=== PATIENT | female | born 1970 | race Caucasian/White ===

== ENCOUNTER 2016-06-19 13:56 | Emergency (ER) | payer OTHER ==
[2016-06-19 14:28] VITALS: BP 154/95
[2016-06-19] MEDS ORDERED: methylPREDNISolone 125 MG* 2 ML VIAL IM ONE (14:49)
--- NOTE | 2016-06-19 15:23 | UC ---
arleen Tyler Timothy, scribed for Blanca Ross MD on 06/19/16 at 1428 . General HPI - HPI Summary HPI Summary: Dahiana Wilson is a 45 yo female presenting to [facility] with swelling in her face since at 0700 this morning, and 5/10 right ear pain and sore throat. She denies fever. 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 She was steroid dependent due to asthma. She has mild CP, but states this is not different from baseline. She denies any gum pain, as well as any other Sx. Her MHx includes numbness, asthma, arthritis, MRSA, shingles, heart tumor, and she is a smoker for the past 27 years. Multiple med allergies noted, but pt states she can take Bactrim and Biaxin and Cipro. Pt is worried about a stroke with the facial swelling. No speech problems or focal weakness. Pt is obese but states she used to weigh 700lbs. - History of Current Complaint Stated Complaint: FACE SWELLING Time Seen by Provider: 06/19/16 14:23 Hx Obtained From: Patient Onset/Duration: Sudden Onset, Lasting Hours, Still Present Timing: Constant Onset Severity: Moderate Current Severity: Moderate Pain Intensity: 5 Pain Location at: right ear Associated Signs & Symptoms: Positive: Chest Pain - baseline. Negative: Fever, Weakness - Allergy/Home Medications Allergies/Adverse Reactions: Allergies Allergy/AdvReac Type Severity Reaction Status Date / Time Penicillins Allergy Severe Anaphylatic Verified 02/05/16 16:55 Shock Amoxicillin Allergy Intermediate Hives/Diff. Verified 02/05/16 16:55 Breathing/I tching Tetracyclines & Related Allergy Intermediate Hives/Diff. Verified 02/05/16 16:55 Breathing/I tching Erythromycin Allergy Unknown Unknown Verified 02/05/16 16:55 Reaction Details Levofloxacin [From Levaquin] Allergy Itching Verified 02/05/16 16:55 PMH/Surg Hx/FS Hx/Imm Hx - Additional Past Medical History Additional PMH: Heart tumor Cardiovascular History Of: Reports: Cardiac Disorders - heart tumor Respiratory History Of: Reports: Asthma - Surgical History Surgical History: Yes Surgery Procedure, Year, and Place: 2005 & 2006 C-Sections. Gastric Bypass. traumatic . tubal ligation ("but I didn't have fallopian tubes and then I got twice" - Family History Known Family History: Positive: Cardiac Disease, Hypertension, Diabetes, Other - breast cancer, arthritis - Social History Occupation: Unemployed Alcohol Use: None Substance Use Type: None Substance Use Comment - Amount & Last Used: opana x10 years Smoking Status (MU): Heavy Every Day Tobacco Smoker Type: Cigarettes Amount Used/How Often: 3/4 ppd Length of Time of Smoking/Using Tobacco: 13+ years Have You Smoked in the Last Year: Yes - Immunization History Most Recent Influenza Vaccination: 2014/2015 Review of Systems Constitutional: Negative Skin: Other - facial swelling Eyes: Negative ENT: Sore Throat, Ear Ache - right Respiratory: Negative Cardiovascular: Chest Pain - not different from baseline Gastrointestinal: Negative Genitourinary: Negative Motor: Negative Neurovascular: Negative Musculoskeletal: Negative Neurological: Negative, Other - No facial asymmetry. No sign of Brown's palsy or paralysis Psychological: Negative All Other Systems Reviewed And Are Negative: Yes Physical Exam Triage Information Reviewed: Yes Completion Of Physical Exam Limited Due To: Other - odor similar to stale cigarette smoke Appearance: No Pain Distress, Pain Distress - mild, Obese Vital Signs: Initial Vital Signs Pulse 81 06/19/16 14:17 Resp 18 06/19/16 14:17 BP 154/95 06/19/16 14:17 Pulse Ox 97 06/19/16 14:17 Vital Signs Reviewed: Yes Eyes: Positive: Conjunctiva Clear. Negative: Discharge ENT: Positive: Hearing grossly normal, Pharyngeal erythema, Other: - Upper and lower dentures. White plaqueing on hard palate and tongue which does not scrape off, consistent with oral candidiasis.. Negative: Tonsillar swelling, Tonsillar exudate, Muffled/hoarse voice Dental: Positive: Other: - upper and lower dentures Neck: Positive: Supple, Nontender, Enlarged Nodes @ - ant cervical Respiratory: Positive: Lungs clear, Normal breath sounds, No respiratory distress Cardiovascular: Positive: RRR, No Murmur, Pulses Normal, Brisk Capillary Refill Musculoskeletal: Positive: Strength Intact, ROM Intact Neurological: Positive: Alert, Muscle Tone Normal Psychological Exam: Normal Skin: Positive: Other - right facial swelling and erythema Re-Evaluation - Re-Evaluation First Eval Re-Evaluation Time: 14:48 Change: Unchanged Comment: Pt is requesting a shot of solu-medrol to help with her facial swelling. The shot will be administered. Course/Dx - Course Course Of Treatment: Dahiana Wilson is a 45 yo female presenting to [facility] with sore throat, 5/10 right ear pain, and right sided facial swelling and redness. After clinical examination and negative rapid strep test, she will be diagnosed with facial swelling, oral thrush, and cellulitis and discharged with appropriate instructions. Pt was counseled to quit smoking tobacco, but does not want to receive cessation information. - Differential Dx - Multi-Symptom Differential Diagnoses: Other - cellulitis, Brown's palsy, oral infection, strep Provider Diagnoses: Facial swelling, oral thrush, cellulitis Discharge - Discharge Plan Condition: Stable Disposition: HOME Prescriptions: Nystatin SUSPENSION* 500,000 units .SEE ORDER QID #140 ml Sulfamethox/Trimethoprim DS* [Bactrim DS 800/160 TAB*] 1 tab PO BID #14 tab predniSONE TAB* [Deltasone TAB*] 40 mg PO DAILY #10 tab Patient Education Materials: Cellulitis (ED), Oral Candidiasis (ED) Referrals: No Primary Care Phys,NOPCP [Primary Care Provider] - Additional Instructions: Please follow up with Dr. Ross, your primary care physician in [place], within 2 days regarding your visit to urgent care today. Return to urgent care or the emergency department with any new or recurring symptoms. The documentation as recorded by the arleen hardwick Timothy accurately reflects the service I personally performed and the decisions made by me, Blanca Ross MD.
== END 2016-06-19 15:36 | disposition home or self-care (01) ==
LOC: UCEAST 13:56
DX: R22.0 Localized swelling, mass and lump, head (principal); B37.0 Candidal stomatitis; L03.90 Cellulitis, unspecified; Z88.1 Allergy status to other antibiotic agents; Z88.0 Allergy status to penicillin; Z88.8 Allergy status to other drugs, medicaments and biological substances; F17.210 Nicotine dependence, cigarettes, uncomplicated
CPT/HCPCS: 87651; 96372; 99212; G0463; J2930

== ENCOUNTER 2017-01-31 16:16 | Emergency (ER) | payer OTHER ==
--- NOTE | 2017-01-31 17:41 | UC ---
Respiratory Complaint HPI - HPI Summary HPI Summary: was recently in the hospital with pneumonia---she feels she was not discharged on a long enough course of prednisone or antibiotics..She has had not fever but lots of cough and wheezing - History of Current Complaint Chief Complaint: UCGeneralIllness Stated Complaint: URI Time Seen by Provider: 01/31/17 17:30 Hx Obtained From: Patient Hx Last Menstrual Period: 2 days ago ?: No Onset/Duration: Gradual Onset, Lasting Days Timing: Constant Severity Initially: Moderate Severity Currently: Moderate Pain Intensity: 6 Pain Scale Used: 0-10 Numeric Character: Cough: Productive Aggravating Factors: Deep Breaths, Recumbent Position Associated Signs And Symptoms: Positive: Pleuritic Chest Pain, Wheezing, URI - Allergies/Home Medications Allergies/Adverse Reactions: Allergies Allergy/AdvReac Type Severity Reaction Status Date / Time Penicillins Allergy Severe Anaphylatic Verified 01/31/17 16:32 Shock Amoxicillin Allergy Intermediate Hives/Diff. Verified 01/31/17 16:32 Breathing/I tching Tetracyclines & Related Allergy Intermediate Hives/Diff. Verified 01/31/17 16:32 Breathing/I tching Erythromycin Allergy Unknown Unknown Verified 01/31/17 16:32 Reaction Details Levofloxacin [From Levaquin] Allergy Itching Verified 01/31/17 16:32 Home Medications: Home Medications Albuterol 2.5MG/3ML (0.083%)* [Ventolin 2.5 MG/3 ML NEB.DANIELLE*] 2.5 mg INH Q4H PRN 01/31/17 [History Confirmed 01/31/17] Albuterol HFA INHALER* [Ventolin HFA Inhaler*] 2 puff INH Q6H PRN 01/31/17 [ History Confirmed 01/31/17] Torsemide TAB* [Demadex 20 MG*] 40 mg PO DAILY 01/31/17 [History Confirmed 01/31] PMH/Surg Hx/FS Hx/Imm Hx Previously Healthy: No Cardiovascular History: Hypertension Respiratory History: Asthma Other History Of: Negative For: HIV, Hepatitis B, Hepatitis C - Surgical History Surgical History: Yes Surgery Procedure, Year, and Place: 2005 & 2007 C-Sections. Gastric Bypass. traumatic . tubal ligation ("but I didn't have fallopian tubes and then I got twice" - Family History Known Family History: Positive: None, Cardiac Disease, Hypertension, Diabetes, Other - breast cancer, arthritis - Social History Occupation: Unemployed Lives: With Family Alcohol Use: None Substance Use Type: Prescribed Substance Use Comment - Amount & Last Used: opana x10 years Smoking Status (MU): Heavy Every Day Tobacco Smoker Type: Cigarettes Amount Used/How Often: 3/4 ppd Length of Time of Smoking/Using Tobacco: 13+ years Have You Smoked in the Last Year: Yes Cessation Counseling: Patient Advised to Stop - Immunization History Most Recent Influenza Vaccination: 2014/2015 Review of Systems Constitutional: Fatigue Skin: Negative Eyes: Negative ENT: Negative Respiratory: Cough Cardiovascular: Negative Gastrointestinal: Negative Genitourinary: Negative Motor: Negative Neurovascular: Negative Musculoskeletal: Negative Neurological: Negative Psychological: Negative Is Patient Immunocompromised?: No All Other Systems Reviewed And Are Negative: Yes Physical Exam Triage Information Reviewed: Yes Appearance: Well-Appearing, No Pain Distress, Obese Vital Signs: Initial Vital Signs Temp 97.3 F 01/31/17 16:26 Pulse 83 01/31/17 16:26 Resp 20 01/31/17 16:26 BP 152/94 01/31/17 16:26 Pulse Ox 99 01/31/17 16:26 Vital Signs Reviewed: Yes Eye Exam: Normal Eyes: Positive: Conjunctiva Clear ENT Exam: Normal ENT: Positive: Normal ENT inspection, Hearing grossly normal, Pharynx normal, TMs normal. Negative: Nasal congestion, Nasal drainage, Tonsillar swelling, Tonsillar exudate, Trismus, Muffled/hoarse voice Neck exam: Normal Neck: Negative: Supple, Nontender, No Lymphadenopathy Respiratory Exam: Other Respiratory: Positive: No respiratory distress, Decreased breath sounds. Negative: No accessory muscle use Cardiovascular Exam: Normal Cardiovascular: Positive: RRR, No Murmur, Pulses Normal, Brisk Capillary Refill Musculoskeletal Exam: Normal Musculoskeletal: Positive: Strength Intact, ROM Intact, No Edema Neurological Exam: Normal Neurological: Positive: Alert, Muscle Tone Normal Psychological Exam: Normal Psychological: Positive: Normal Response To Family Skin Exam: Normal UC Diagnostic Evaluation - Laboratory O2 Sat by Pulse Oximetry: 99 - Radiology Xray Interpretation: Positive (See Comments) Radiology Interpretation Completed By: Radiologist - right Respiratory Course/Dx - Course Course Of Treatment: Albuterol, cefdinir, increase fluids, follow with pcp this week - Differential Dx/Diagnosis Differential Diagnosis/HQI/PQRI: Asthma, Bronchitis, Exacerbation Of COPD, Laryngitis, Lower Resp Infection, Sinusitis Provider Diagnoses: Right BAsaliar inflitrate, Hypertension in poor control, nicotine dependent Discharge - Discharge Plan Condition: Stable Disposition: HOME Prescriptions: Albuterol HFA INHALER* [Ventolin HFA Inhaler*] 2 puff INH Q4H PRN #1 mdi PRN Reason: wheezing Cefdinir [Cefdinir 300 MG CAP] 300 mg PO BID #20 cap Clarithromycin TAB* [Biaxin 500 MG TAB*] 500 mg PO BID #20 tab predniSONE TAB* [Deltasone TAB*] 50 mg PO DAILY #5 tab Patient Education Materials: Bacterial Pneumonia (ED) Referrals: [facility] [Outside] - 3 Days
--- NOTE | 2017-01-31 18:11 | RAD ---
INDICATION: Cough and shortness of breath. COMPARISON: Comparison is made with a prior chest x-ray study from July 16, 2013. TECHNIQUE: Dual-energy PA and lateral views of the chest were obtained. FINDINGS: The heart is within normal limits in size. Mediastinal and hilar contours appear within normal limits. The lungs are underinflated. There is a small infiltrate at the right lung base. No pleural effusion is seen. IMPRESSION: HYPOVENTILATION, SMALL RIGHT BASILAR INFILTRATE.
[2017-01-31 18:18] VITALS: BP 123/81
== END 2017-01-31 18:46 | disposition home or self-care (01) ==
LOC: UCEAST 16:16
DX: R91.8 Other nonspecific abnormal finding of lung field (principal); R53.83 Other fatigue; I10 Essential (primary) hypertension; J45.909 Unspecified asthma, uncomplicated; E66.9 Obesity, unspecified; Z98.84 Bariatric surgery status; Z88.1 Allergy status to other antibiotic agents; Z88.0 Allergy status to penicillin; Z88.8 Allergy status to other drugs, medicaments and biological substances; F17.210 Nicotine dependence, cigarettes, uncomplicated
CPT/HCPCS: 71020; 99212; G0463

== ENCOUNTER 2017-05-22 16:28 | Emergency (ER) | payer OTHER ==
[2017-05-22 17:32] VITALS: BP 145/74
--- NOTE | 2017-05-22 18:27 | UC ---
Respiratory Complaint HPI - HPI Summary HPI Summary: 2 weeks of cough chest and sinus congestion-some fevers and fatigue - History of Current Complaint Chief Complaint: UCRespiratory Stated Complaint: SORE THROAT, CONGESTED Time Seen by Provider: 05/22/17 18:20 Hx Obtained From: Patient Hx Last Menstrual Period: 3 wks ago ?: No Onset/Duration: Gradual Onset, Lasting Weeks - 2, Still Present Timing: Constant Severity Initially: Moderate Severity Currently: Moderate Character: Cough: Nonproductive Aggravating Factors: Nothing Alleviating Factors: Bronchodilator Associated Signs And Symptoms: Positive: Fever, Chills, URI, Nasal Congestion, Sinus Discomfort - Allergies/Home Medications Allergies/Adverse Reactions: Allergies Allergy/AdvReac Type Severity Reaction Status Date / Time Penicillins Allergy Severe Anaphylatic Verified 01/31/17 16:32 Shock Tetracyclines & Related Allergy Intermediate Hives/Diff. Verified 05/22/17 17:32 Breathing/I tching Erythromycin Allergy Unknown Unknown Verified 05/22/17 17:32 Reaction Details Levofloxacin [From Levaquin] Allergy Itching Verified 05/22/17 17:32 PMH/Surg Hx/FS Hx/Imm Hx Previously Healthy: No - Chronic pain Respiratory History: Bronchitis, Pneumonia, Other Other Respiratory History: nicotine dependent Other History Of: Negative For: HIV, Hepatitis B, Hepatitis C - Surgical History Surgical History: Yes Surgery Procedure, Year, and Place: 2006 & 2007 C-Sections. Gastric Bypass. traumatic . tubal ligation ("but I didn't have fallopian tubes and then I got twice" - Family History Known Family History: Positive: None, Cardiac Disease, Hypertension, Diabetes, Other - breast cancer, arthritis - Social History Occupation: Works From/At Home Lives: With Family Alcohol Use: None Substance Use Type: Prescribed Substance Use Comment - Amount & Last Used: Opana x10 years Smoking Status (MU): Heavy Every Day Tobacco Smoker Type: Cigarettes Amount Used/How Often: 3/4 ppd Length of Time of Smoking/Using Tobacco: 13+ years Have You Smoked in the Last Year: Yes Cessation Counseling: Counseled 3+Min - 10 Min - Immunization History Most Recent Influenza Vaccination: 2014/2015 Review of Systems Constitutional: Fatigue Skin: Negative Eyes: Negative ENT: Sore Throat Respiratory: Cough Cardiovascular: Negative Gastrointestinal: Negative Genitourinary: Negative Motor: Negative Neurovascular: Negative Musculoskeletal: Negative Neurological: Negative Psychological: Negative Is Patient Immunocompromised?: No All Other Systems Reviewed And Are Negative: Yes Physical Exam Triage Information Reviewed: Yes Appearance: Well-Appearing, Pain Distress - mild, Obese - morbid Vital Signs: Initial Vital Signs Temp 97.2 F 05/22/17 17:28 Pulse 95 05/22/17 17:28 Resp 18 05/22/17 17:28 BP 145/74 05/22/17 17:28 Pulse Ox 98 05/22/17 17:28 Vital Signs Reviewed: Yes Eye Exam: Normal Eyes: Positive: Conjunctiva Clear ENT Exam: Normal ENT: Positive: Normal ENT inspection, Hearing grossly normal, Pharynx normal, TMs normal, Sinus tenderness, Uvula midline. Negative: Nasal congestion, Nasal drainage, Tonsillar swelling, Tonsillar exudate, Trismus, Muffled voice, Hoarse voice, Dental tenderness Dental Exam: Normal Neck exam: Normal Neck: Positive: Supple, Nontender, No Lymphadenopathy Respiratory Exam: Normal Respiratory: Positive: Chest non-tender, Lungs clear, Normal breath sounds, No respiratory distress, No accessory muscle use Cardiovascular Exam: Normal Cardiovascular: Positive: RRR, No Murmur, Pulses Normal, Brisk Capillary Refill Musculoskeletal Exam: Normal Musculoskeletal: Positive: Strength Intact, ROM Intact, No Edema Neurological Exam: Normal Neurological: Positive: Alert, Muscle Tone Normal Psychological Exam: Normal Skin Exam: Normal UC Diagnostic Evaluation - Laboratory O2 Sat by Pulse Oximetry: 98 Respiratory Course/Dx - Course Course Of Treatment: continue neb. Albuterol, increase fluids, tylenol, ibuprofen for pain, nicotine cesasation information, prednisone, biaxin, again I have provided her with referral info to get a primary care doctor so she can be followwed appropriatly - Differential Dx/Diagnosis Provider Diagnoses: Nicotine dependent, morbid obesity,elevated blood pressure withour diagnosis of hypertension, acute exacerbation of chronic bronchitis Discharge - Discharge Plan Condition: Stable Disposition: HOME Prescriptions: Clarithromycin TAB* [Biaxin 500 MG TAB*] 500 mg PO BID #20 tab predniSONE TAB* [Deltasone TAB*] 20 mg PO DAILY #18 tab Patient Education Materials: How to Stop Smoking (ED), Acute Bronchitis (ED), Secondhand Smoke Exposure in Children (ED), Bronchospasm (ED) Referrals: [facility] [place]] - As Soon As Possible
== END 2017-05-22 19:03 | disposition home or self-care (01) ==
LOC: UCEAST 16:28
DX: J42 Unspecified chronic bronchitis (principal); E66.9 Obesity, unspecified; R03.0 Elevated blood-pressure reading, without diagnosis of hypertension; F17.210 Nicotine dependence, cigarettes, uncomplicated; R09.81 Nasal congestion; Z88.0 Allergy status to penicillin; Z88.1 Allergy status to other antibiotic agents
CPT/HCPCS: 87651; 99212; G0463

== ENCOUNTER 2017-05-28 18:46 | Emergency (ER) | payer OTHER ==
[2017-05-28 18:52] VITALS: BP 161/96
== END 2017-05-28 19:17 | disposition left against medical advice (07) ==
LOC: ED 18:46
DX: R06.02 Shortness of breath (principal); Z53.21 Procedure and treatment not carried out due to patient leaving prior to being seen by health care provider

== ENCOUNTER 2017-08-26 09:44 | Emergency (ER) | payer OTHER ==
[2017-08-26 10:13] VITALS: BP 159/106
--- NOTE | 2017-08-26 10:16 | UC ---
Shortness of Breath HPI - HPI Summary HPI Summary: Pt presents with cough, worsening dysphagia, and feeling SOB at times. She tells me that she has a history of COPD, gastric RNY, and a "tumor on the backside of her heart". She does not have a PCP. Over the last week she has been having a productive cough with black and brown/yellow mucus. [place] SOB at times, especially while coughing. She also reports that ever since her gastric RNY many years ago, she has had difficulties swallowing - feels this is worsening over the last 2-3 months. She also tells me that about 3 years ago she saw her PCP at that time and was told she had a tumor on the backside of her heart. She did not follow up for this until 4 months ago in [place]. She had, what sounds to me like, an transesophageal echo and/or EGD and is unsure of the results. [place] wanted her to follow up in 3 months, but she did not go to this follow up - citing other family members' health issues. She denies fever, chills, sore throat, chest pain, abdominal pain, n/v/d/c. She is currently not taking any medications. She is still smoking daily. - History of Current Complaint Chief Complaint: UCGeneralIllness Stated Complaint: CONGESTED Hx Obtained From: Patient Hx Last Menstrual Period: 08/26/17 Onset/Duration: Gradual Onset Timing: Constant Current Severity: None - Allergy/Home Medications Allergies/Adverse Reactions: Allergies Allergy/AdvReac Type Severity Reaction Status Date / Time MS Penicillins [Penicillins] Allergy Severe Anaphylatic Verified 08/26/17 10:02 Shock MS Tetracyclines & Related Allergy Intermediate Hives/Diff. 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 Gastric Bypass. traumatic . tubal ligation ("but I didn't have fallopian tubes and then I got twice" - Family History Known Family History: Positive: None, Cardiac Disease, Hypertension, Diabetes, Other - breast cancer, arthritis - Social History Lives: With Family Alcohol Use: Occasionally Substance Use Type: None Substance Use Comment - Amount & Last Used: Opana x10 years Smoking Status (MU): Light Every Day Tobacco Smoker Type: Cigarettes Amount Used/How Often: 1/2 ppd Length of Time of Smoking/Using Tobacco: 13+ years Have You Smoked in the Last Year: Yes - Immunization History Most Recent Influenza Vaccination: 2014/2015 Review of Systems Constitutional: Negative Skin: Negative Eyes: Negative ENT: Other - Dysphagia Respiratory: Shortness Of Breath, Cough Cardiovascular: Negative Gastrointestinal: Negative Genitourinary: Negative Neurovascular: Negative Musculoskeletal: Negative Neurological: Negative Psychological: Negative All Other Systems Reviewed And Are Negative: Yes Physical Exam - Summary Physical Exam Summary: GENERAL: NAD. Obese. Exam limited due to body habitus. Drinking iced tea currently with no evidence of dysphagia. SKIN: No rashes, sores, ulcers, masses, lesions. HEENT: Head: AT/NC Eyes: Conjunctiva clear without inflammation or discharge. Ears: Hearing grossly normal. TMs intact, no bulging, erythema, or edema. Nose: Nasal mucosa pink and moist. NTTP maxillary and frontal sinus. Throat: Posterior oropharynx without exudates, erythema, or tonsillar enlargement. Uvula midline. NECK: Supple. Nontender. No lymphadenopathy. Trachea midline. CHEST: Moderate wheezing throughout. No accessory muscle use. Breathing comfortably and in no distress. CV: RRR. Without m/r/g. Pulses intact. Brisk cap refill. NEURO: Alert. CN II-XII grossly intact. PSYCH: Age appropriate behavior. Triage Information Reviewed: Yes Vital Signs: Initial Vital Signs Temp 97.5 F 08/26/17 10:05 Pulse 88 08/26/17 10:05 Resp 22 08/26/17 10:05 BP 159/106 08/26/17 10:05 Pulse Ox 98 08/26/17 10:05 Shortness of Breath Dx - Course Course Of Treatment: CXR: IMPRESSION: Stigmata of obstructive lung disease. No acute pulmonary or cardiac process evident. EKG NSR 77bpm J point elevation early repol as read by Dr. Juan. I had a long discussion with the patient that her symptoms are concerning and should be further evaluated in the ED for more appropriate testing, such as possible CT/CTA, EGD, Echo. She refused and said she just wanted to be treated for her cough. I will treat her as a COPD exacerbation. She signed out AMA and left in stable condition. - Differential Dx/Diagnosis Provider Diagnoses: Cough. SOB Discharge - Sign-Out/Discharge Documenting (check all that apply): Discharge/Admit/Transfer - Discharge Plan Condition: Stable Disposition: AGAINST MEDICAL ADVICE Prescriptions: Albuterol HFA INHALER* [Ventolin HFA Inhaler*] 1 - 2 puff INH Q6H PRN #1 mdi PRN Reason: Sob/Wheezing Azithromycin TAB* [Zithromax TAB (Z-MONICA) 250 mg #6 tabs] 2 tab PO .TODAY, THEN 1 DAILY #1 monica Ciprofloxacin TAB* [Cipro 500 MG TAB*] 500 mg PO BID #14 tab predniSONE TAB* [Deltasone TAB*] 60 mg PO DAILY #21 tab Referrals: No Primary Care Phys,NOPCP [Primary Care Provider] - - Billing Disposition and Condition Condition: STABLE Disposition: AMA
--- NOTE | 2017-08-26 11:09 | RAD ---
INDICATION: Congested. History of tobacco use. The patient notes that she has a cardiac tumor. COMPARISON: January 31, 2017 TECHNIQUE: Dual energy PA and routine lateral views of the chest were obtained. REPORT: Elevated lung volumes with increased AP thoracic diameter. Accounting for superimposed soft tissues with large body habitus the lungs and pleural spaces are grossly clear. Mild prominence of the interstitial markings. Negative for pneumothorax. The heart, pulmonary vasculature, and mediastinal contours are unremarkable. Mild thoracic degenerative spondylosis. IMPRESSION: Stigmata of obstructive lung disease. No acute pulmonary or cardiac process evident.
== END 2017-08-26 11:33 | disposition left against medical advice (07) ==
LOC: UCEAST 09:44
DX: R05 Cough (principal); R06.02 Shortness of breath; F17.210 Nicotine dependence, cigarettes, uncomplicated; Z88.3 Allergy status to other anti-infective agents; Z88.0 Allergy status to penicillin
CPT/HCPCS: 71046; 93005; 99212; G0463

== ENCOUNTER 2018-03-07 17:59 | Emergency (ER) | payer OTHER ==
[2018-03-07 18:10] VITALS: BP 155/88
--- NOTE | 2018-03-07 19:19 | UC ---
Respiratory Complaint HPI - HPI Summary HPI Summary: 47 yo WF h/o adrenal tumor and multiple boils, COPD, skin infections p/w recurrent boil on chin associated with recent and ongoing cough with productive sputum and illness x 2-3 weeks. Pt has been on intermittent periods of oral steroids due to her "adrenal tumor" and is in need for an MRI but not able to obtain one trell to her weight of 181kg. - History of Current Complaint Chief Complaint: UCGeneralIllness Stated Complaint: SORE THROAT Time Seen by Provider: 03/07/18 18:57 Hx Obtained From: Patient Hx Last Menstrual Period: 02/01/18 Onset/Duration: Lasting Days, Lasting Weeks Severity Initially: Moderate Severity Currently: Moderate Pain Intensity: 7 - Allergies/Home Medications Allergies/Adverse Reactions: Allergies Allergy/AdvReac Type Severity Reaction Status Date / Time erythromycin base Allergy Unknown Verified 03/07/18 18:13 Reaction Details levofloxacin [From Levaquin] Allergy Itching Verified 03/07/18 18:12 Penicillins Allergy Itching Verified 03/07/18 18:13 Tetracyclines Allergy Hives/Diff. Verified 03/07/18 18:13 Breathing/I tching Home Medications: Home Medications Ibuprofen 400 mg PO 03/07/18 [History] PMH/Surg Hx/FS Hx/Imm Hx Previously Healthy: No Other Endocrine History: adrenal tumor Respiratory History: COPD, Bronchitis Other History Of: Negative For: HIV, Hepatitis B, Hepatitis C - Surgical History Surgical History: Yes Surgery Procedure, Year, and Place: 2006 & 2007 C-Sections. Gastric Bypass. traumatic . tubal ligation ("but I didn't have fallopian tubes and then I got twice" - Family History Known Family History: Positive: None, Cardiac Disease, Hypertension, Diabetes, Other - breast cancer, arthritis - Social History Alcohol Use: Occasionally Substance Use Type: None Substance Use Comment - Amount & Last Used: Opana x10 years Smoking Status (MU): Heavy Every Day Tobacco Smoker Type: Cigarettes Amount Used/How Often: 1/2 ppd Length of Time of Smoking/Using Tobacco: 13+ years Have You Smoked in the Last Year: Yes - Immunization History Most Recent Influenza Vaccination: 2014/2015 Review of Systems Constitutional: Negative Skin: Other - boil on chin Eyes: Negative ENT: Negative Respiratory: Shortness Of Breath, Cough Cardiovascular: Negative Gastrointestinal: Negative Genitourinary: Negative Motor: Negative Neurovascular: Negative Musculoskeletal: Negative Neurological: Negative Psychological: Negative All Other Systems Reviewed And Are Negative: Yes Physical Exam - Summary Physical Exam Summary: Vital Signs Reviewed: Yes Appearance: Positive: Well-Appearing Skin: Positive: chin cellulitis size 3x4cm Head/Face: Positive: Normal Head/Face Inspection Eyes: Positive: EOMI, ELVIA ENT: Positive: Hearing grossly normal, Pharynx normal, TMs erythema L>R Neck: Positive: submandibular and B/L cervical LAD Respiratory/Lung Sounds: Positive: expiratory wheezing, faint Cardiovascular: Positive: RRR, S1,S2 Abdomen Description: Positive: Nontender, Soft Bowel Sounds: Positive: Present Musculoskeletal: Positive: Normal Neurological: Positive: CN Intact II-III Psychiatric:Positive: Normal Vital Signs: Initial Vital Signs Temp 37.3 C 03/07/18 18:02 Pulse 87 03/07/18 18:02 Resp 16 03/07/18 18:02 BP 155/88 03/07/18 18:02 Pulse Ox 98 03/07/18 18:02 UC Diagnostic Evaluation - Laboratory O2 Sat by Pulse Oximetry: 98 Respiratory Course/Dx - Course Course Of Treatment: Chin cellulitis- abx. COPD exacerbation with bronchitis- abx with steroids. Left ear pain- evolving OM- abx - Differential Dx/Diagnosis Provider Diagnoses: Chin cellulitis. Bronchitis. Left OM Discharge - Sign-Out/Discharge Documenting (check all that apply): Patient Departure All imaging exams completed and their final reports reviewed: Yes - Discharge Plan Condition: Stable Disposition: HOME Prescriptions: Cefuroxime 500 MG(NF) 500 mg PO BID 7 Days #14 tab predniSONE TAB* [Deltasone 20 MG TAB*] 20 mg PO DAILY 5 Days #5 tab Patient Education Materials: Cellulitis (ED), Acute Bronchitis (ED), Ear Infection (ED) Referrals: No Primary Care Phys,NOPCP [Primary Care Provider] - - Billing Disposition and Condition Condition: STABLE Disposition: Home
[2018-03-07] MEDS ORDERED: DOXYcycline CAP(*) 100 MG PO ONE (19:26)
== END 2018-03-07 20:05 | disposition home or self-care (01) ==
LOC: UCEAST 17:59
DX: L03.211 Cellulitis of face (principal); J40 Bronchitis, not specified as acute or chronic; H66.92 Otitis media, unspecified, left ear; J44.9 Chronic obstructive pulmonary disease, unspecified; F17.210 Nicotine dependence, cigarettes, uncomplicated; Z88.1 Allergy status to other antibiotic agents; Z88.0 Allergy status to penicillin
CPT/HCPCS: 87651; 99202; A9270-GY; G0463

== ENCOUNTER 2018-08-08 15:09 | Emergency (ER) | payer OTHER ==
[2018-08-08 16:12] VITALS: BP 134/69
[2018-08-08] MEDS ORDERED: Albuterol/Ipratropium NEB.SOL* Albuterol 2.5 MG/Ipratropium 0.5 MG 3 ML INH ONE (16:27)
--- NOTE | 2018-08-08 16:28 | UC ---
Respiratory Complaint HPI - HPI Summary HPI Summary: Ill with cold symptoms over the past 2 weeks. The patient was seen in a [place] facility and was diagnosed with bronchitis and given a course of clindamycin. She states she got better for one or 2 days however today she has more of a cough and wheezing. She is a smoker and has continued to smoke. She' s had hoarseness for about 2 weeks. - History of Current Complaint Chief Complaint: UCRespiratory Stated Complaint: CONGESTED Time Seen by Provider: 08/08/18 15:51 Hx Obtained From: Patient Hx Last Menstrual Period: 07/22/18 ?: No Onset/Duration: Gradual Onset Severity Initially: Moderate Severity Currently: Mild Pain Intensity: 6 Character: Cough: Productive - Productive cough of "chunky pieces". Aggravating Factors: Allergens Alleviating Factors: Bronchodilator Associated Signs And Symptoms: Positive: Wheezing, URI, Nasal Congestion Related History: Seasonal Allergies - Risk Factors Pulmonary Embolism Risk Factors: Smoking Cardiac Risk Factors: Smoking Pseudomonas Risk Factors: Repeated Antibiotics Past 3 Months Tuberculosis Risk Factors: Negative - Allergies/Home Medications Allergies/Adverse Reactions: Allergies Allergy/AdvReac Type Severity Reaction Status Date / Time erythromycin base Allergy Unknown Verified 08/08/18 16:13 Reaction Details levofloxacin [From Levaquin] Allergy Itching Verified 08/08/18 16:13 Penicillins Allergy Itching Verified 08/08/18 16:13 Tetracyclines Allergy Hives/Diff. Verified 08/08/18 16:13 Breathing/I tching PMH/Surg Hx/FS Hx/Imm Hx Previously Healthy: Yes - treated for bronchitis with clindamycin 2 weeks ago Respiratory History: Asthma Other History Of: Negative For: HIV, Hepatitis B, Hepatitis C - Surgical History Surgical History: Yes Surgery Procedure, Year, and Place: 2006 & 2007 C-Sections. Gastric Bypass. traumatic . tubal ligation ("but I didn't have fallopian tubes and then I got twice" - Family History Known Family History: Positive: None, Cardiac Disease, Hypertension, Diabetes, Other - breast cancer, arthritis - Social History Alcohol Use: Occasionally Substance Use Type: None Substance Use Comment - Amount & Last Used: Opana x10 years Smoking Status (MU): Light Every Day Tobacco Smoker Type: Cigarettes Amount Used/How Often: 1/2 ppd Length of Time of Smoking/Using Tobacco: 13+ years Have You Smoked in the Last Year: Yes - Immunization History Most Recent Influenza Vaccination: Review of Systems All Other Systems Reviewed And Are Negative: Yes ENT: Positive: Sore Throat, Nasal Discharge, Sinus Congestion Respiratory: Positive: Cough - Wheezing, productive cough "chunky pieces" Cardiovascular: Positive: Negative Is Patient Immunocompromised?: No Physical Exam Triage Information Reviewed: Yes Appearance: Well-Appearing, No Pain Distress, Well-Nourished Vital Signs: Initial Vital Signs Temp 98 F 08/08/18 16:07 Pulse 84 08/08/18 16:07 Resp 18 08/08/18 16:07 BP 134/69 08/08/18 16:07 Pulse Ox 98 08/08/18 16:07 Vital Signs Reviewed: Yes Eye Exam: Normal ENT: Positive: Hearing grossly normal, Pharynx normal, Nasal congestion, Nasal drainage, TMs normal, Hoarse voice, Uvula midline. Negative: Tonsillar swelling , Tonsillar exudate, Trismus, Muffled voice Neck exam: Normal Neck: Positive: Supple, Nontender, No Lymphadenopathy Respiratory: Positive: No respiratory distress, No accessory muscle use, Wheezing - Very mild wheezing however patient does not take a good inspiration or expiration. Cardiovascular Exam: Normal Musculoskeletal Exam: Normal Neurological Exam: Normal Psychological Exam: Normal Skin Exam: Normal Respiratory Course/Dx - Course Course Of Treatment: DuoNeb treatment was given. Chest x-ray: FINDINGS: The heart and mediastinum are normal in size and contour. The lungs are grossly clear. There is no evidence of large pleural effusion. Visualized bones are normal for the patient's age. There is no radiographic evidence of free air beneath the diaphragm IMPRESSION: No radiographic evidence of acute cardiopulmonary disease. Going to treat with prednisone 60 mg daily for 3 days, 40 mg daily for 3 days and 20 mg daily for 3 days. She does not have a primary care provider therefore I'm going to refer her to [facility] to help her establish that. She is agreeable to this. She may continue her albuterol treatments at home every 4 hours as needed for wheezing. I did advise her that she should stop smoking. - Differential Dx/Diagnosis Differential Diagnosis/HQI/PQRI: Bronchitis Provider Diagnosis: Bronchitis Discharge - Sign-Out/Discharge Documenting (check all that apply): Patient Departure All imaging exams completed and their final reports reviewed: Yes - Discharge Plan Condition: Fair Disposition: HOME Prescriptions: predniSONE [Prednisone 20 MG TAB] 20 mg PO DAILY 9 Days #18 tablet Patient Education Materials: Acute Bronchitis (ED) Referrals: No Primary Care Phys,NOPCP [Primary Care Provider] - [facility] [address] [Outside] Additional Instructions: Increase fluids. Take the prednisone with food. Continue your nebulizer at home every 4 hours as needed. Definite follow-up with your primary care provider if no improvement in 3 or 4 days. - Billing Disposition and Condition Condition: FAIR Disposition: Home
== END 2018-08-08 17:49 | disposition home or self-care (01) ==
LOC: UCEAST 15:09
DX: J45.909 Unspecified asthma, uncomplicated (principal); F17.210 Nicotine dependence, cigarettes, uncomplicated; Z88.1 Allergy status to other antibiotic agents; Z88.0 Allergy status to penicillin
CPT/HCPCS: 71046; 99212; A9270-GY; G0463

== ENCOUNTER 2019-02-19 12:02 | Emergency (ER) | payer OTHER ==
--- NOTE | 2019-02-19 12:08 | UC ---
Throat Pain/Nasal Rickey HPI - HPI Summary HPI Summary: 48 yo female presents with RIGHT ear pain and drainage. She tells me that yesterday her right ear began to hurt and this morning had increased pain and noticed some bloody drainage. She was recently swimming in [facility] and got back 2 days ago. She also notes that for the past 2-3 weeks she has had "boils" to her right leg - gets these from time to time and states that oral anbx and steroids always make them go away. She denies fever, chills, sinus symptoms, sore throat, cough, hx of MRSA - History of Current Complaint Stated Complaint: CHEST CONGESTION BLOODY DRAINAGE FROM EAR SKIN ISS Time Seen by Provider: 02/19/19 12:07 Hx Obtained From: Patient Hx Last Menstrual Period: 07/22/18 Onset/Duration: Gradual Onset Severity: Moderate Pain Intensity: 5 Pain Scale Used: 0-10 Numeric - Allergies/Home Medications Allergies/Adverse Reactions: Allergies Allergy/AdvReac Type Severity Reaction Status Date / Time erythromycin base Allergy Unknown Verified 08/08/18 16:13 Reaction Details levofloxacin [From Levaquin] Allergy Itching Verified 08/08/18 16:13 Penicillins Allergy Itching Verified 08/08/18 16:13 Tetracyclines Allergy Hives/Diff. Verified 08/08/18 16:13 Breathing/I tching PMH/Surg Hx/FS Hx/Imm Hx - Additional Past Medical History Additional PMH: Chronic pain Heart tumor Respiratory History: Asthma Other History Of: Negative For: HIV, Hepatitis B, Hepatitis C - Surgical History Surgical History: Yes Surgery Procedure, Year, and Place: 2005 & 2006 C-Sections. Gastric Bypass. traumatic . tubal ligation ("but I didn't have fallopian tubes and then I got twice" - Family History Known Family History: Positive: Cardiac Disease, Hypertension, Diabetes, Other - breast cancer, arthritis - Social History Lives: With Family Alcohol Use: Occasionally Substance Use Type: None Substance Use Comment - Amount & Last Used: Opana x10 years Smoking Status (MU): Light Every Day Tobacco Smoker Type: Cigarettes Amount Used/How Often: 1/2 ppd Length of Time of Smoking/Using Tobacco: 13+ years Have You Smoked in the Last Year: Yes - Immunization History Most Recent Influenza Vaccination: 2014/2015 Review of Systems All Other Systems Reviewed And Are Negative: No Constitutional: Positive: Negative Skin: Positive: Other - "boils" Eyes: Positive: Negative ENT: Positive: Ear Ache Respiratory: Positive: Negative Cardiovascular: Positive: Negative Gastrointestinal: Positive: Negative Neurological: Positive: Negative Psychological: Positive: Negative Physical Exam - Summary Physical Exam Summary: GENERAL: NAD. WDWN. No pain distress. SKIN: RIGHT THIGH: Scattered 5mm faint abscesses/folliculitis. Mild erythema and edema at bases with slight TTP. No drainage, discharge, or streaking. HEENT: Head: AT/NC Eyes: EOM intact. Conjunctiva clear without inflammation or discharge. Ears: Hearing grossly normal. TMs intact, no bulging, erythema, or edema. RIGHT EAR CANAL: Mild dried blood and edema. TM intact. TTP with auricular movement. Nose: Nasal mucosa pink and moist. NTTP maxillary and frontal sinus. Throat: Posterior oropharynx without exudates, erythema, or tonsillar enlargement. Uvula midline. NECK: Supple. Nontender. No lymphadenopathy. CHEST: CTAB. No accessory muscle use. Breathing comfortably and in no distress. CV: RRR. Pulses intact. Cap refill <2seconds NEURO: Alert. PSYCH: Age appropriate behavior. Triage Information Reviewed: Yes Vital Signs: Vital Signs: Temp Pulse Resp BP Pulse Ox 97.8 F 86 18 177/123 100 02/19/19 12:23 02/19/19 12:23 02/19/19 12:23 02/19/19 12:23 02/19/19 12:23 Vital Signs Reviewed: Yes Throat Pain/Nasal Course/Dx - Course Course Of Treatment: Right otitis externa. Folliculitis vs abscesses to right thigh. - Differential Dx/Diagnosis Provider Diagnosis: Otitis externa, Folliculitis Discharge ED - Sign-Out/Discharge Documenting (check all that apply): Patient Departure All imaging exams completed and their final reports reviewed: No Studies - Discharge Plan Condition: Stable Disposition: HOME Prescriptions: Cephalexin CAP* [Keflex CAP*] 500 mg PO TID #21 cap Ofloxacin 0.3% (Ear Drop)* [Floxin 0.3% OTIC.DANIELLE (Ear Drop)] 5 drop RIGHT EAR BID 7 Days #1 btl predniSONE TAB* [Deltasone 20 MG TAB*] 40 mg PO DAILY #10 tab Patient Education Materials: Ear Infection (ED), Furunculosis and Carbunculosis (ED) Referrals: No Primary Care Phys,NOPCP [Primary Care Provider] - [facility] [place]Outside] - As Soon As Possible Additional Instructions: If you develop a fever, shortness of breath, chest pain, new or worsening symptoms - please call your PCP or go to the ED immediately. Your blood pressure was high at todays visit. Please see your primary provider within 4 weeks for recheck and re-evaluation. - Billing Disposition and Condition Condition: STABLE Disposition: Home
--- OUTSIDE RECORDS SUMMARY | 2019-02-19 12:15 | XMS REPORT | Continuity of Care Document ---
:1970 External Reference #:[id number] Author Name Francisco Renee DO, MPH Address [facility]7 [facility], [address] [place] [address] Problems Active Problems Provider Date Type 2 diabetes mellitus Francisco Renee DO, MPH Onset: 03/29/2008 Social History Type Date Description Comments Sex Unknown Cigarette Use Current Cigarette Smoker 1 Pack Daily ETOH Use Denies alcohol use Tobacco Use Start: Unknown Patient is a current smoker, smokes every day Smoking Status Reviewed: 01/11/19 Patient is a current smoker, smokes every day Allergies, Adverse Reactions, Alerts Active Allergies Reaction Severity Comments Date PCN 03/29/2008 Erythromycin 03/29/2008 Amoxicillin 03/29/2008 Medications Active Medications SIG Qnty Indications Ordering Date Provider Cyclobenzaprine HCL si by mouth 60tabs Francisco Renee, 03/08/2016 10mg every 8 to 12 DO, MPH Tablets hours as directed chronic pain patient. Opana si by mouth 150tabs Francisco Renee, 11/09/2014 10mg Tablets every 4-6 hours DO, MPH as directed chronic pain patient can fill generic if needed. Oxymorphone HCL ER si by mouth 60tabs G89.21 Francisco Renee, 07/11/2014 40mg every 12 hours DO, MPH Tablets ER 12HR as directed chronic pain M25.552 M25.551 Singulair 10mg Tablets 1 PO qd 30tabs Unknown Albuterol 90mcg/Act prn Unknown Aerosol Advair HFA 45/21 Aerosol 1 puff bid Unknown Torsemide 20mg Tablets 1 bid 60tabs Unknown Nicotine Transdermal System Unknown 21mg/24HR Patches 24HR Immunizations Description No Information Available Vital Signs Date Vital Result Comment 01/11/2019 2:05pm BP Systolic 144 mmHg BP Diastolic 86 mmHg Heart Rate 94 /min Respiratory Rate 20 /min Height 67 inches 5'7" Weight 462.00 lb Pain Level 6 Pain at this time. Pain Level With Medicine 6 on average with meds Pain Level Without Medicine 9 without meds BMI (Body Mass Index) 72.4 kg/m2 12/08/2018 2:33pm BP Systolic 140 mmHg BP Diastolic 86 mmHg Heart Rate 88 /min Respiratory Rate 20 /min Height 67 inches 5'7" Weight 460.00 lb Pain Level 4 Pain at this time. Pain Level With Medicine 3 on average with meds Pain Level Without Medicine 9 without meds BMI (Body Mass Index) 72.0 kg/m2 Results Description No Information Available Procedures Date Code Description Status 12/08/2018 97025 Therapeutic, Prophylactic Or Diagnostic Injection Subq/Im Completed 11/09/2018 32133 Therapeutic, Prophylactic Or Diagnostic Injection Subq/Im Completed 10/09/2018 03080 Therapeutic, Prophylactic Or Diagnostic Injection Subq/Im Completed 09/04/2018 43991 Therapeutic, Prophylactic Or Diagnostic Injection Subq/Im Completed 08/06/2018 29976 Therapeutic, Prophylactic Or Diagnostic Injection Subq/Im Completed Medical Devices Description No Information Available Encounters Type Date Location Provider Dx Diagnosis Office Visit 12/08/2018 Main Office as Of Francisco Renee DO G89.21 Chronic pain due 2:15p 06/05/13 MPH to trauma M25.552 Pain in left hip M25.551 Pain in right hip M43.16 Spondylolisthesis, lumbar region M54.5 Low back pain 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 R53.83 Other fatigue Office Visit 11/09/2018 3:00p Main Office as Francisco Renee G89.21 Chronic pain due Of 06/05/13 DO, MPH to trauma M54.5 Low back pain M25.552 Pain in left hip M25.551 Pain in right hip 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 R53.83 Other fatigue Office Visit 10/09/2018 1:00p Main Office as Francisco Renee G89.21 Chronic pain due Of 06/05/13 DO, MPH to trauma M25.552 Pain in left hip M25.551 Pain in right hip M54.5 Low back pain R53.83 Other fatigue 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 Office Visit 09/04/2018 1:15p Main Office as ReneeFrancisco santillan, G89.21 Chronic pain due Of 06/05/13 DO, MPH to trauma M54.5 Low back pain M25.552 Pain in left hip M25.551 Pain in right hip 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 R53.83 Other fatigue Office Visit 08/06/2018 2:30p Main Office as ReneeFrancisco santillan G89.21 Chronic pain due Of 06/05/13 DO, MPH to trauma M25.551 Pain in right hip M25.552 Pain in left hip M54.5 Low back pain R53.83 Other fatigue Z79.891 snf (current) use of opiate analgesic Assessments Date Code Description Provider 01/11/2019 G89.21 Chronic pain due to trauma Renee, Francisco, DO, MPH 01/11/2019 M43.16 Spondylolisthesis, lumbar region Renee, Francisco, DO, MPH 01/11/2019 M54.5 Low back pain Renee, Francisco, DO, MPH 01/11/2019 M25.551 Pain in right hip Renee, Francisco, DO, MPH 01/11/2019 M25.552 Pain in left hip Renee, Francisco, DO, MPH 01/11/2019 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 Renee, Francisco , DO, MPH 01/11/2019 R53.83 Other fatigue Renee, Francisco, DO, MPH 12/08/2018 G89.21 Chronic pain due to trauma Renee, Francisco, DO, MPH 12/08/2018 M25.552 Pain in left hip Renee, Francisco, DO, MPH 12/08/2018 M25.551 Pain in right hip Renee, Francisco, DO, MPH 12/08/2018 M43.16 Spondylolisthesis, lumbar region Renee, Francisco, DO, MPH 12/08/2018 M54.5 Low back pain Renee, Francisco, DO, MPH 12/08/2018 Z79.891 snf (current) use of opiate analgesic Renee, Francisco , DO, MPH 12/08/2018 R53.83 Other fatigue Renee, Francisco, DO, MPH 11/09/2018 G89.21 Chronic pain due to trauma Renee, Francisco, DO, MPH 11/09/2018 M54.5 Low back pain Renee, Francisco, DO, MPH 11/09/2018 M25.552 Pain in left hip Renee, Francisco, DO, MPH 11/09/2018 M25.551 Pain in right hip Renee, Francisco, DO, MPH 11/09/2018 Z79.891 snf (current) use of opiate analgesic Renee, Francisco , DO, MPH 11/09/2018 R53.83 Other fatigue Renee, Francisco, DO, MPH 10/09/2018 G89.21 Chronic pain due to trauma Renee, Francisco, DO, MPH 10/09/2018 M25.552 Pain in left hip Renee, Francisco, DO, MPH 10/09/2018 M25.551 Pain in right hip Renee, Francisco, DO, MPH 10/09/2018 M54.5 Low back pain Renee, Francisco, DO, MPH 10/09/2018 R53.83 Other fatigue Renee, Francisco, DO, MPH 10/09/2018 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 Renee, Francisco , DO, MPH 09/04/2018 G89.21 Chronic pain due to trauma Renee, Francisco, DO, MPH 09/04/2018 M54.5 Low back pain Renee, Francisco, DO, MPH 09/04/2018 M25.552 Pain in left hip Renee, Francisco, DO, MPH 09/04/2018 M25.551 Pain in right hip Renee, Francisco, DO, MPH 09/04/2018 Z79.891 snf (current) use of opiate analgesic Renee, Francisco , DO, MPH 09/04/2018 R53.83 Other fatigue Renee, Francisco, DO, MPH 08/06/2018 G89.21 Chronic pain due to trauma Francisco Renee DO MPH 08/06/2018 M25.551 Pain in right hip Francisco Renee DO MPH 08/06/2018 M25.552 Pain in left hip Francisco Renee DO MPH 08/06/2018 M54.5 Low back pain Francisco Renee DO, MPH 08/06/2018 R53.83 Other fatigue Francisco Renee DO MPH 08/06/2018 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 Symptoms and complaints discussed and reviewed today. No significant changes in physical findings. Continue current medical pain management.M43.16 Spondylolisthesis, lumbar regionComments:Chronic. Symptoms and complaints discussed and reviewed today. No significant changes in physical findings. Continue current medical pain management.M54.5 Low back painComments: Chronic. Symptoms and complaints discussed and reviewed today.No changes in physical findings. Patient is stable and comfortable when current medical therapy is rendered.M25.551 Pain in right hipComments:Chronic. Symptoms and complaints discussed and reviewed today. No significant changes in physical findings. Continue current medical pain management.M25.552 Pain in left hip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New Labs:Urine Drug Screen , Ordered: 01/11/19Comments:Urine drug screen sample taken today to monitor opiate use and to monitor use of illicit substances.Will discuss results at next appointment.The following tests were ordered:6 AM, AMPH, ABEBE, EMILIANA, BUP, CARIS, COCM, COT, ETG, FENT, MCSHSG, OPI, OXY, PCP, TAPEN, XTSY, ZOLP. A urine drug test (UDT) was ordered for this patient and collected on site today. Creatinine has been ordered as well for specimen validity, not for kidney function. Preliminary UDT results are not final and should not be used to determine patient care or plan of treatment. Initially a qualitative immunoassay screen will be done. Any inconsistent or positive findings will be further tested with a more comprehensive quantitative confirmation LCMS study. It is part of the treatment process of prescribing controlled substances and is considered standard of care.R53.83 Other fatigueComments:Symptoms and complaints discussed and reviewed today. No significant changes in physical findings. Continue current medical pain management. B12 injection administered after patient evaluated. 1ml IM for fatigue. (See Consent for injection-B12 document for lot number and expiration date.)AllComments:Continue current medical pain management; injection therapy, osteopathic manipulation, PT / modalities, and consults as needed to manage chronic pain.Non - opioid pain management discussed and optionsdiscussed.Side effects discussed; anticipatory guidance given. Patient clearly understand and agree with all medical treatments and suggestions. All medicines prescribed are adequate and appropriate for this patient's complaint of pain, medical history, physical, and personal goals.Goals of Treatment are to provide adequate and appropriate multidisciplinary medical pain management to increase/ maintain patient's quality of life and functionality while maintaining satisfactory side effect profile andminimizing skilled nursing end-organ damage. Importance of regular nutrition throughout the day discussed.Activity as toleratedContinue with PCP Functional Status Description No Information Available Mental Status Description No Information Available Referrals Description No Information Available
[2019-02-19 12:28] VITALS: BP 177/123
== END 2019-02-19 12:51 | disposition home or self-care (01) ==
LOC: UCEAST 12:02
DX: H60.91 Unspecified otitis externa, right ear (principal); L73.9 Follicular disorder, unspecified; J45.909 Unspecified asthma, uncomplicated; F17.210 Nicotine dependence, cigarettes, uncomplicated; Z88.1 Allergy status to other antibiotic agents; Z88.0 Allergy status to penicillin
CPT/HCPCS: 99212; G0463

== ENCOUNTER 2019-04-15 17:01 | Emergency (ER) | payer OTHER ==
--- OUTSIDE RECORDS SUMMARY | 2019-04-15 17:08 | XMS REPORT | Continuity of Care Document ---
:1970 External Reference #:[id number] Author Name Francisco Renee DO MPH Address [facility]7 [facility], [address] [place] [address] Problems Active Problems Provider Date Type 2 diabetes mellitus Francisco Renee DO, MPH Onset: 03/29/2008 Social History Type Date Description Comments Sex Unknown Cigarette Use Current Cigarette Smoker 1 Pack Daily ETOH Use Denies alcohol use Tobacco Use Start: Unknown Patient is a current smoker, smokes every day Smoking Status Reviewed: 02/19/19 Patient is a current smoker, smokes every [...] Nicotine Transdermal System Unknown 21mg/24HR Patches 24HR Bronkaid 25-400mg Tablets Unknown Immunizations Description No Information Available Vital Signs Date Vital Result Comment 02/19/2019 10:22am BP Systolic 146 mmHg BP Diastolic 82 mmHg Heart Rate 90 /min Respiratory Rate 20 /min Height 67 inches 5'7" Weight 462.00 lb per patient Pain Level 5 Pain at this time. Pain Level With Medicine 4 on average with meds Pain Level Without Medicine 9 without meds BMI (Body Mass Index) 72.4 kg/m2 01/11/2019 2:05pm BP Systolic 144 mmHg BP Diastolic 86 mmHg Heart Rate 94 /min Respiratory Rate 20 /min Height 67 inches 5'7" Weight 462.00 lb Pain Level 6 Pain at this time. Pain Level With Medicine 6 on average with meds Pain Level Without Medicine 9 without meds BMI (Body Mass Index) 72.4 kg/m2 Results Description No Information Available Procedures Date Code Description Status 12/08/2018 15308 Therapeutic, Prophylactic Or Diagnostic Injection Subq/Im Completed 11/09/2018 34223 Therapeutic, Prophylactic Or Diagnostic Injection Subq/Im Completed 10/09/2018 86253 Therapeutic, Prophylactic Or Diagnostic Injection Subq/Im Completed 09/04/2018 61326 Therapeutic, Prophylactic Or Diagnostic Injection Subq/Im Completed Medical Devices Description No Information Available Encounters Type Date Location Provider Dx Diagnosis Office Visit 01/11/2019 Main Office as Of Francisco Renee DO, G89.21 Chronic pain due 2:45p 06/05/13 MPH to trauma M43.16 Spondylolisthesis, lumbar region M54.5 Low back pain M25.551 Pain in right hip M25.552 Pain in left hip 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 R53.83 Other fatigue Office Visit 12/08/2018 2:15p Main Office as Francisco Renee G89.21 Chronic pain due Of 06/05/13 DO, MPH to trauma M25.552 Pain in left hip M25.551 Pain in right hip M43.16 Spondylolisthesis, lumbar region M54.5 Low back pain 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 R53.83 Other fatigue Office Visit 11/09/2018 3:00p Main Office as Francisco Renee G89.21 Chronic pain due Of 06/05/13 DO, MPH to trauma M54.5 Low back pain M25.552 Pain in left hip M25.551 Pain in right hip 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 R53.83 Other fatigue Office Visit 10/09/2018 1:00p Main Office as ReneeFrancisco santillan G89.21 Chronic pain due Of 06/05/13 DO, MPH to trauma M25.552 Pain in left hip M25.551 Pain in right hip M54.5 Low back pain R53.83 Other fatigue Z79.891 nursing home (current) use of opiate analgesic Office Visit 09/04/2018 1:15p Main Office as ReneeFrancisco santillan G89.21 Chronic pain due Of 06/05/13 DO, MPH to trauma M54.5 Low back pain M25.552 Pain in left hip M25.551 Pain in right hip Z79.891 nursing home (current) use of opiate analgesic R53.83 Other fatigue Assessments Date Code Description Provider 02/19/2019 G89.21 Chronic pain due to trauma Renee, Francisco, DO, MPH 02/19/2019 M43.16 Spondylolisthesis, lumbar region Renee, Francisco, DO, MPH 02/19/2019 M54.5 Low back pain Renee, Francisco, DO, MPH 02/19/2019 M25.552 Pain in left hip Renee, Francisco, DO, MPH 02/19/2019 M25.551 Pain in right hip Renee, Francisco, DO, MPH 02/19/2019 Z79.891 nursing home (current) use of opiate 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 Renee, Francisco , DO, MPH 02/19/2019 R53.83 Other fatigue Renee, Francisco, DO, MPH 01/11/2019 G89.21 Chronic pain due to trauma Renee, Francisco, DO, MPH 01/11/2019 M43.16 Spondylolisthesis, lumbar region Renee, Francisco, DO, MPH 01/11/2019 M54.5 Low back pain Renee, Francisco, DO, MPH 01/11/2019 M25.551 Pain in right hip Renee, Francisco, DO, MPH 01/11/2019 M25.552 Pain in left hip Renee, Francisco, DO, MPH 01/11/2019 Z79.891 nursing home (current) use of opiate analgesic Renee, Francisco [...] pain Renee, Francisco, DO, MPH 12/08/2018 Z79.891 nursing home (current) use of opiate analgesic Renee, Francisco , DO, MPH 12/08/2018 R53.83 Other fatigue Renee, Francisco, DO, MPH 11/09/2018 G89.21 Chronic pain due to trauma Renee, Francisco, DO, MPH 11/09/2018 M54.5 Low back pain Renee, Francisco, DO, MPH 11/09/2018 M25.552 Pain in left hip Renee, Francisco, DO, MPH 11/09/2018 M25.551 Pain in right hip Renee, Francisco, DO, MPH 11/09/2018 Z79.891 nursing home (current) use of opiate analgesic Renee, Francisco [...] fatigue Renee, Francisco, DO, MPH 10/09/2018 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 Francisco Renee DO, MPH 09/04/2018 G89.21 Chronic pain due to trauma Francisco Renee DO, MPH 09/04/2018 M54.5 Low back pain Francisco Renee DO MPH 09/04/2018 M25.552 Pain in left hip Francisco Renee DO, MPH 09/04/2018 M25.551 Pain in right hip Francisco Renee DO MPH 09/04/2018 Z79.891 nursing home (current) use of opiate analgesic Francisco Renee DO, MPH 09/04/2018 R53.83 Other fatigue Francisco Renee DO MPH Plan of Treatment Future Appointment(s):03/23/2019 10:30 am - Francisco Renee DO MPH at Main Office as Of 06/05/1409 - Francisco Renee DO, MPHG89.21 Chronic pain due to traumaComments:Chronic. Symptoms [...] and comfortable when current medical therapy is rendered.M25.552 Pain in left hipComments:Chronic. Symptoms and complaints discussed and reviewed today. No significant changes in physical findings. Continue current medical pain management.M25.551 Pain in right hipComments:Chronic. Symptoms and complaints discussed and reviewed today. No significant changes in physical findings. Continue current medical pain management.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New Labs:Urine Drug Screen, Ordered: 02/19/19Comments:Urine drug screen sample taken today to monitor opiate use and to monitor use of illicit substances.Will discuss results at next appointment.The following tests were ordered:6 AM, AMPH, ABEBE, EMILIANA, BUP, CARIS, COCM, ETG, FENT, MCSHSG, OPI, OXY, PCP, TAPEN, XTSY, ZOLP. A urine drug test (UDT) was ordered for this patient and collected on site today. Creatinine has been ordered as well for specimen validity, not for kidney function. Preliminary UDT results are not final and should not be used to determine patient care or plan of treatment. Initially a qualitative immunoassay screen will bedone. Any inconsistent or positive findings will be [...] while maintaining satisfactory side effect profile andminimizing vermin exterminator end-organ damage. Importance of regular nutrition throughout the day discussed.Activity as toleratedContinue with PCP Functional Status Description No Information Available Mental Status Description No Information Available Referrals Description No Information Available
--- OUTSIDE RECORDS SUMMARY | 2019-04-15 17:08 | XMS REPORT | Continuity of Care Document ---
:1970 External Reference #:[id number] Author Name Francisco Renee DO MPH Address [address], [address] [place] [address] Problems Active Problems Provider Date Type 2 diabetes mellitus Francisco Renee DO, MPH Onset: 03/29/2008 Social History Type Date Description Comments Sex Unknown Cigarette Use Current Cigarette Smoker 1 Pack Daily ETOH Use Denies alcohol use Tobacco Use Start: Unknown Patient is a current smoker, smokes every day Smoking Status Reviewed: 03/23/19 Patient is a current smoker, smokes every [...] Available Vital Signs Date Vital Result Comment 03/23/2019 10:16am BP Systolic 136 mmHg BP Diastolic 84 mmHg Heart Rate 80 /min Respiratory Rate 20 /min Height 67 inches 5'7" Weight 400.00 lb Pain Level 5 Pain at this time. Pain Level With Medicine 4 on average with meds Pain Level Without Medicine 9 without meds BMI (Body Mass Index) 62.6 kg/m2 02/19/2019 10:22am BP Systolic 146 mmHg BP [...] Information Available Procedures Date Code Description Status 02/19/2019 15369 Therapeutic, Prophylactic Or Diagnostic Injection Subq/Im Completed 12/08/2018 61237 Therapeutic, Prophylactic Or Diagnostic Injection Subq/Im Completed 11/09/2018 58678 Therapeutic, Prophylactic Or Diagnostic Injection Subq/Im Completed 10/09/2018 19617 Therapeutic, Prophylactic Or Diagnostic Injection Subq/Im Completed Medical Devices Description No Information Available Encounters Type Date Location Provider Dx Diagnosis Office Visit 02/19/2019 Main Office as Of Francisco Renee DO, G89.21 Chronic pain due 10:00a 06/05/13 MPH to trauma M43.16 Spondylolisthesis, lumbar region M54.5 Low back pain M25.552 Pain in left hip M25.551 Pain in right hip Z79.891 FPC (current) use of opiate analgesic R53.83 Other fatigue Office Visit 01/11/2019 2:45p Main Office as Francisco Renee G89.21 Chronic pain due Of 06/05/13 , MPH to trauma M43.16 Spondylolisthesis, lumbar region M54.5 Low back pain M25.551 Pain in right hip M25.552 Pain in 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 R53.83 Other fatigue Office Visit 12/08/2018 2:15p Main Office as Francisco Renee G89.21 Chronic pain due Of 06/05/13 DO, MPH to trauma M25.552 Pain in left hip M25.551 Pain in right hip M43.16 Spondylolisthesis, lumbar region M54.5 Low back pain Z79.891 FPC (current) use of opiate analgesic R53.83 Other fatigue Office Visit 11/09/2018 3:00p Main Office as ReneeFrancisco santillan G89.21 Chronic pain due Of 06/05/13 DO, MPH to trauma M54.5 Low back pain M25.552 Pain in left hip M25.551 Pain in right hip Z79.891 FPC (current) use of opiate analgesic R53.83 Other fatigue Office Visit 10/09/2018 1:00p Main Office as ReneeFrancisco santillan G89.21 Chronic pain due Of 06/05/13 DO, MPH to trauma M25.552 Pain in left hip M25.551 Pain in right hip M54.5 Low back pain R53.83 Other fatigue Z79.891 FPC (current) use of opiate analgesic Assessments Date Code Description Provider 03/23/2019 G89.21 Chronic pain due to trauma Renee, Francisco, DO, MPH 03/23/2019 M43.16 Spondylolisthesis, lumbar region Renee, Francisco, DO, MPH 03/23/2019 M25.552 Pain in left hip Renee, Francisco, DO, MPH 03/23/2019 M25.551 Pain in right hip Renee, Francisco, DO, MPH 03/23/2019 M54.5 Low back pain Renee, Francisco, DO, MPH 03/23/2019 Z79.891 FPC (current) use of opiate analgesic Renee, Francisco , DO, MPH 03/23/2019 R53.83 Other fatigue Renee, Francisco, DO, MPH 02/19/2019 G89.21 Chronic pain due to trauma Renee, Francisco, DO, MPH 02/19/2019 M43.16 Spondylolisthesis, lumbar region Renee, Francisco, DO, MPH 02/19/2019 M54.5 Low back pain Renee, Francisco, DO, MPH 02/19/2019 M25.552 Pain in left hip Renee, Francisco, DO, MPH 02/19/2019 M25.551 Pain in right hip Renee, Francisco, DO, MPH 02/19/2019 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 Renee, Francisco [...] hip Renee, Francisco, DO, MPH 01/11/2019 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 Renee, Francisco [...] pain Renee, Francisco, DO, MPH 12/08/2018 Z79.891 FPC (current) use of opiate analgesic Renee, Francisco , DO, MPH 12/08/2018 R53.83 Other fatigue Renee, Francisco, DO, MPH 11/09/2018 G89.21 Chronic pain due to trauma Renee, Francisco, DO, MPH 11/09/2018 M54.5 Low back pain Renee, Francisco, DO, MPH 11/09/2018 M25.552 Pain in left hip Renee, Francisco, DO, MPH 11/09/2018 M25.551 Pain in right hip Francisco Renee DO, MPH 11/09/2018 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 Francisco Renee DO, MPH 11/09/2018 R53.83 Other fatigue Francisco Renee DO, MPH 10/09/2018 G89.21 Chronic pain due to trauma Francisco Renee DO, MPH 10/09/2018 M25.552 Pain in left hip Francisco Renee DO, MPH 10/09/2018 M25.551 Pain in right hip Francisco Renee DO, MPH 10/09/2018 M54.5 Low back pain Francisco Renee DO, MPH 10/09/2018 R53.83 Other fatigue Francisco Renee DO, MPH 10/09/2018 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 Symptoms and complaints discussed and reviewed today. No significant changes in physical findings. Continue current medical pain management.M43.16 Spondylolisthesis, lumbar regionComments:Chronic. Symptoms and complaints discussed and reviewed today. No significant changes in physical findings. Continue current medical pain management.M25.552 Pain in left hipComments:Chronic. Symptoms and complaints discussed and reviewed today. No significant changes in physical findings. Continue current medical pain management.M25.551 Pain in right hipComments:Chronic. Symptoms and complaints discussed and reviewed today. No significant changes in physical findings. Continue current medical pain management.M54.5 Low back painComments:Chronic. Symptoms and complaints discussed and reviewed today.No changes in physical findings. Patient is stable and comfortable when current medical therapy is rendered.Z79.891 FPC (current) use of opiate analgesicNew Labs:Urine Drug Screen, Ordered: 03/23/19Comments:Urine drug screen sample taken today to monitor [...] while maintaining satisfactory side effect profile andminimizing mcfp end-organ damage. Importance of regular nutrition throughout the day discussed.Activity as toleratedContinue with PCP Functional Status Description No Information Available Mental Status Description No Information Available Referrals Description No Information Available
[2019-04-15 17:27] VITALS: BP 141/93
--- NOTE | 2019-04-15 18:09 | UC ---
Respiratory Complaint HPI - HPI Summary HPI Summary: The patient is a 48-year-old female with a history of asthma who presents here with a 4-6 week history of cough wheezing and chest tightness. She states that her asthma has been very bad throughout her entire life. She states that she was steroid dependent for many years. She states that over 10 years ago she had to be intubated and had a pneumothorax. She smokes and knows that she should not. She has had no fever or chills. She denies any chest pain. She has chronic lower extremity edema which has remained stable. She states that she currently does not have a primary care physician. She states that she has done well on doxycycline and in fact took it when she was hospitalized at [facility] about a year ago. - History of Current Complaint Chief Complaint: UCGeneralIllness Stated Complaint: COUGH, CONGESTION Time Seen by Provider: 04/15/19 17:59 Hx Obtained From: Patient Hx Last Menstrual Period: 07/22/18 Onset/Duration: Gradual Onset, Lasting Weeks Timing: Constant Severity Initially: Mild Severity Currently: Moderate Pain Intensity: 4 Pain Scale Used: 0-10 Numeric Character: Cough: Productive Aggravating Factors: Deep Breaths Alleviating Factors: Bronchodilator Associated Signs And Symptoms: Positive: Wheezing, Sinus Discomfort - Allergies/Home Medications Allergies/Adverse Reactions: Allergies Allergy/AdvReac Type Severity Reaction Status Date / Time erythromycin base Allergy Unknown Verified 04/15/19 17:27 Reaction Details levofloxacin [From Levaquin] Allergy Itching Verified 04/15/19 17:27 Penicillins Allergy Itching Verified 04/15/19 17:27 Tetracyclines Allergy Hives/Diff. Verified 04/15/19 17:27 Breathing/I tching PMH/Surg Hx/FS Hx/Imm Hx Previously Healthy: Yes Cardiovascular History: Hypertension Respiratory History: Asthma, Bronchitis, Pneumonia, Other Other Respiratory History: ptx, respiratory failure Other History Of: Negative For: HIV, Hepatitis B, Hepatitis C - Surgical History Surgical History: Yes Surgery Procedure, Year, and Place: 2005 & 2007 C-Sections. Gastric Bypass. traumatic . tubal ligation ("but I didn't have fallopian tubes and then I got twice" - Family History Known Family History: Positive: None, Cardiac Disease, Hypertension, Diabetes, Other - breast cancer, arthritis - Social History Alcohol Use: Occasionally Substance Use Type: None Substance Use Comment - Amount & Last Used: Opana x10 years Smoking Status (MU): Light Every Day Tobacco Smoker Type: Cigarettes Amount Used/How Often: 1/2 ppd Length of Time of Smoking/Using Tobacco: 13+ years Have You Smoked in the Last Year: Yes - Immunization History Most Recent Influenza Vaccination: Review of Systems All Other Systems Reviewed And Are Negative: Yes Constitutional: Positive: Negative Skin: Positive: Negative Eyes: Positive: Negative ENT: Positive: Nasal Discharge, Sinus Congestion, Sinus Pain/Tenderness Respiratory: Positive: Cough, Other - wheezing Cardiovascular: Positive: Negative Gastrointestinal: Positive: Negative Genitourinary: Positive: Negative Motor: Positive: Negative Neurovascular: Positive: Negative Musculoskeletal: Positive: Edema - chronic and stable Neurological: Positive: Negative Psychological: Positive: Negative Physical Exam Triage Information Reviewed: Yes Appearance: Well-Appearing, Other: - BMI 63 Vital Signs: Initial Vital Signs Temp 97.5 F 04/15/19 17:23 Pulse 95 04/15/19 17:23 Resp 22 04/15/19 17:23 BP 141/93 04/15/19 17:23 Pulse Ox 100 04/15/19 17:23 Vital Signs Reviewed: Yes Eyes: Positive: Conjunctiva Clear ENT: Positive: Hearing grossly normal, Nasal congestion, Sinus tenderness. Negative: Nasal drainage, Trismus, Muffled voice, Hoarse voice Dental Exam: Normal Neck: Positive: Supple, Nontender, No Lymphadenopathy Respiratory: Positive: Wheezing Cardiovascular: Positive: RRR, No Murmur Musculoskeletal: Positive: ROM Intact, No Edema Neurological: Positive: Alert Psychological Exam: Normal Skin Exam: Normal Respiratory Course/Dx - Differential Dx/Diagnosis Provider Diagnosis: Acute bronchitis with bronchospasm Discharge ED - Sign-Out/Discharge Documenting (check all that apply): Patient Departure All imaging exams completed and their final reports reviewed: No Studies - Discharge Plan Condition: Stable Disposition: HOME Prescriptions: DOXYcycline CAP(*) [DOXYcycline 100MG CAP(*)] 100 mg PO BID #20 cap predniSONE TAB* [Deltasone 20 MG TAB*] 40 mg PO DAILY #10 tab Patient Education Materials: Acute Bronchitis (ED) Referrals: [facility] [[facility]] - 2 Weeks Additional Instructions: TO ER FOR WORSENING SYMPTOMS recheck in 4-5 days if not better - Billing Disposition and Condition Condition: STABLE Disposition: Home
== END 2019-04-15 18:28 | disposition home or self-care (01) ==
LOC: UCEAST 17:01
DX: J20.9 Acute bronchitis, unspecified (principal); J45.909 Unspecified asthma, uncomplicated; F17.210 Nicotine dependence, cigarettes, uncomplicated; Z88.0 Allergy status to penicillin; Z88.1 Allergy status to other antibiotic agents; Z98.84 Bariatric surgery status
CPT/HCPCS: 99212; G0463; J7512

== ENCOUNTER 2019-07-19 07:39 | Emergency (ER) | payer OTHER ==
--- NOTE | 2019-07-19 08:27 | UC ---
FLU HPI - HPI Summary HPI Summary: 48 y/o female presents to the urgent care c/o dry cough, fever, SOB for the past 2 days. Pt w/ PMHX of asthma and heart and adrenal tumor. Pt reports fever of 100.7 this morning, she took Tylenol around 0630am. However she hasn't been able to sleep well due to cough. Today she woke feels more SOB and her cough has worsen despite doin her albuterol Tx. 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 Yesterday she developed left ear pain and this morning she noticed some blood coming out from her ear. About 2 days ago she was exposed to someone w/ respiratory symptoms and then she found out she was Dx w/ pneumonia. She lives w/ older mother w/ PMHC COPD and CHF, and kids. Pt denies dizziness, chest pain, abdominal pain, N/V/D, neck pain, rash. - History of Current Complaint Stated Complaint: FEVER,COUGH,SOB Time Seen by Provider: 07/19/19 08:18 Hx Obtained From: Patient Hx Last Menstrual Period: 3 weeks ago Onset/Duration: Gradual Onset, Lasting Days - 3 days, Still Present, Worse Since - todya Severity Currently: Mild Severity Initially: Moderate Pain Intensity: 4 - body aches and LF ear pain Pain Scale Used: 0-10 Numeric Associated Signs & Symptoms: Positive: Fever, Myalgia, Cough - dry, Nasal Congestion - yellowish. Negative: Vomiting, Diarrhea Related Hx: Smoking - Risk Factors Influenza Risk Factors: Negative - Allergy/Home Medications Allergies/Adverse Reactions: Allergies Allergy/AdvReac Type Severity Reaction Status Date / Time erythromycin base Allergy Unknown Verified 07/19/19 08:53 Reaction Details levofloxacin [From Levaquin] Allergy Itching Verified 07/19/19 08:53 Penicillins Allergy Itching Verified 07/19/19 08:53 Tetracyclines Allergy Hives/Diff. Verified 07/19/19 08:53 Breathing/I tching Home Medications: Home Medications Oxymorphone HCl [Opana] 40 mg PO Q12H 08/26/17 [History Confirmed 07/19/19] Albuterol/Ipratropium NEB.DANIELLE* [Duoneb (Albuterol 2.5 MG/Ipratropium 0.5 MG)] 1 neb INH Q6H PRN #1 [email or web address] 07/19/19 [Rx Confirmed 07/19/19] Cefpodoxime 200 mg (NF) [Vantin 200 MG TAB (NF)] 200 mg PO Q12H 7 Days #14 tab 07/19/19 [Rx] Cyclobenzaprine TAB* [Flexeril 10 MG TAB*] 10 mg PO .Q8-10H 07/19/19 [History Confirmed 07/19/19] DOXYcycline CAP(*) [DOXYcycline 100MG CAP(*)] 100 mg PO BID 7 Days #14 cap 07/18 [Rx] Furosemide TAB* [Lasix TAB*] 40 mg PO DAILY #30 tab 07/19/19 [Rx] Oxymorphone (NF) [Opana (NF)] 10 mg PO .Q4-6H 07/19/19 [History Confirmed ] PMH/Surg Hx/FS Hx/Imm Hx Previously Healthy: Yes Cardiovascular History: Other - Heart tumor Respiratory History: Asthma Other History Of: Negative For: HIV, Hepatitis B, Hepatitis C - Surgical History Surgical History: Yes Surgery Procedure, Year, and Place: 2006 & 2007 C-Sections. Gastric Bypass. traumatic . tubal ligation ("but I didn't have fallopian tubes and then I got twice" - Family History Known Family History: Positive: Cardiac Disease, Hypertension, Diabetes, Other - breast cancer, arthritis - Social History Occupation: Employed Full-time Lives: With Family Alcohol Use: None Substance Use Type: None Substance Use Comment - Amount & Last Used: Opana x10 years Smoking Status (MU): Current Some Day Smoker Type: Cigarettes Amount Used/How Often: 1/2 ppd Length of Time of Smoking/Using Tobacco: 13+ years Have You Smoked in the Last Year: Yes - Immunization History Most Recent Influenza Vaccination: 2014/2015 Review of Systems All Other Systems Reviewed And Are Negative: Yes Constitutional: Positive: Fever, Chills, Fatigue, Other - body aches Skin: Positive: Negative Eyes: Positive: Negative ENT: Positive: Ear Ache - left ear pain, Nasal Discharge - yellowish, Sinus Congestion Respiratory: Positive: Shortness Of Breath, Cough - dry Cardiovascular: Positive: Negative Gastrointestinal: Positive: Negative Genitourinary: Positive: Negative Motor: Positive: Negative Neurovascular: Positive: Negative Musculoskeletal: Positive: Myalgia Neurological/Mental Status: Positive: Negative Psychological: Positive: Negative Is Patient Immunocompromised?: No Physical Exam - Summary Physical Exam Summary: Vital Signs Reviewed: Yes General: well developed, well nourished obese female sitting in the examining table w/o any apparent distress Eyes: Positive: Conjunctiva Clear - PERRLA, EOMI, fundi grossly normal ENT: Positive: Normal ENT inspection, Hearing grossly normal, Pharynx normal, Nasal congestion - edematous and erythematous nasal mucosa, Nasal drainage - yellowish drainage, B?L external ear canals: clear, LF TM injected w/ erythema and and perforated TM, RT TM WNL. Negative: Tonsillar swelling, No Tonsillar exudate Neck: Positive: Supple, Nontender, No Lymphadenopathy Respiratory: no orthopnea or dyspnea. Able to speak in full sentences, no retractions or accessory muscle use, no tripod position, stridor, or head bobbing. Positive breath sounds bilaterally. Decrease breath sounds on RT lungs , mild wheezing on the posterior upper left lung, no rhonchi, no crackles or rales. Cardiovascular: Positive: RRR, No Murmur, Pulses Normal, Brisk Capillary Refill Abdomen Description: Positive: Nontender, No Organomegaly, Soft. Negative: CVA Tenderness (R), CVA Tenderness (L) Bowel Sounds: Positive: Present Musculoskeletal Exam: Normal Musculoskeletal: Positive: Strength Intact, ROM Intact, No Edema Neurological Exam: Normal Psychological Exam: Normal Skin Exam: Normal Triage Information Reviewed: Yes Flu Course/Dx - Course Course Of Treatment: 48 y/o female presents to the urgent care c/o dry cough, fever, SOB for the past 2 days. Pt w/ PMHX of asthma and heart and adrenal tumor. Pt reports fever of 100.7 this morning, she took Tylenol around 0630am. However she hasn't been able to sleep well due to cough. Today she woke feels more SOB and her cough has worsen despite doin her albuterol Tx. 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 Yesterday she developed left ear pain and this morning she noticed some blood coming out from her ear. About 2 days ago she was exposed to someone w/ respiratory symptoms and then she found out she was Dx w/ pneumonia. She lives w/ older mother w/ PMHC COPD and CHF, and kids. Pt denies dizziness, chest pain, abdominal pain, N/V/D, neck pain, rash. Hx obtained. Pt is hemodynamically stable, A&OX3,tachycardic and tachypneic w/ possible asthma exacerbation due to viral syndrome and LF otitis media w/ TM rupture on examination. O2Sat: 98%. Rapid influenza A&B: negative. Rapid strep: negative. Pt with PMHX of asthma and a hear tumor and adrenal tumor and lives w/ an elderly mother who W/ PMHX of COPD and CHF, Pt has SOB, cough and stated fever this morning. I think Pt meets the criteria for COVID-19 testing, due to the circumstances we are going right now. Even though she hasn't been exposed w/ confirm COVID-19 patients, however 2 days ago she was exposed w/ pneumonia and other people w/ respiratory issues. Thus, COVID-19 and respiratory panel ordered. Pt advised results will have a turn over of 2-6 days and she should be under isolation. Chest X-ray ordered r/o pneumonia. Impression: IMPRESSION: DIFFUSE INTERSTITIAL OPACIFICATION WITH PATCHY AIRSPACE DISEASE OF THE RIGHT LUNG BASE SUGGESTIVE OF A MIXTURE OF INFECTIOUS PNEUMONITIS AND CONSOLIDATION GIVEN THE CLINICAL HISTORY as per radiologist. When Pt returned from chest X- ray she was in respiratory distress, tachycardic and more tachypneic. At this moment PT's symptoms discussed w/ DR Brooks since Pt meets the SIRS criteria and due to her clinical presentation w/ worsening symptoms and Chest X-ray reading w/ possible pneumonia and also the possibility of having COVID, he recommends Pt should go to the ER by ambulance for further management. At this moment she probably needs IV antibiotics and further work up. Pt explained the importance to go by ambulance to [facility] for further management in her symptoms since she can develop respiratory distress. She was explained the risk and benefits of ambulance transfer. However she declined and she states she will go by private car to the ER. PT signed AMA. I discussed Pt's symptoms w/ DR Campuzano at [facility] and he accepted PT. Pt left clinic hemodynamically stable, A&OX3, and ambulating. - Differential Dx/Diagnosis Differential Diagnosis/HQI/PQRI: Bronchitis, Influenza, Pneumonia, Upper Respiratory Infection Provider Diagnosis: Pneumonia, Left otitis media, Asthma exacerbation, Elevated BP without diagnosis of hypertension Discharge ED - Sign-Out/Discharge Documenting (check all that apply): Patient Departure - Pt highly recommended to go to the ER by ambulace for furhter managment All imaging exams completed and their final reports reviewed: Yes - Discharge Plan Condition: Stable Disposition: HOME-RECOMMEND TO ED Prescriptions: Albuterol/Ipratropium NEB.DANIELLE* [Duoneb (Albuterol 2.5 MG/Ipratropium 0.5 MG)] 1 neb INH Q6H PRN #1 neb.danielle PRN Reason: Wheezing Patient Education Materials: Community Acquired Pneumonia (ED) Referrals: [facility] [place]] Additional Instructions: I think you need a higher level or care for your presenting symptoms. I highly recommend you to go to the ER for further evaluation and treatment. The risks of not going can be , sepsis, severe pneumonia, Respiratory distress syndrome etc. I spoke to the ER attending Dr. Campuzano . They are expecting you. - Billing Disposition and Condition Condition: STABLE Disposition: Home-Recommend to ED
[2019-07-19 08:53] VITALS: BP 170/96
[2019-07-19 08:59] LABS: Influenza A Molecular Negative (Negative); Influenza B Molecular Negative (Negative)
== END 2019-07-19 11:11 | disposition home health service (06) ==
LOC: UCEAST 07:39
DX: J45.901 Unspecified asthma with (acute) exacerbation (principal); J18.9 Pneumonia, unspecified organism; H66.92 Otitis media, unspecified, left ear; R03.0 Elevated blood-pressure reading, without diagnosis of hypertension; F17.210 Nicotine dependence, cigarettes, uncomplicated; Z88.1 Allergy status to other antibiotic agents; Z88.0 Allergy status to penicillin; Z83.6 Family history of other diseases of the respiratory system
CPT/HCPCS: 71046; 87651; 99212; G0463

== ENCOUNTER 2019-07-19 12:35 | Emergency (ER) | payer OTHER ==
--- OUTSIDE RECORDS SUMMARY | 2019-07-19 12:44 | XMS REPORT | Continuity of Care Document ---
:1970 External Reference #:[id number] Author Name Francisco Renee DO MPH Address [address], [address] [place] [address] Problems Active Problems Provider Date Type 2 diabetes mellitus Francisco Renee DO, MPH Onset: 03/29/2008 Social History Type Date Description Comments Sex Unknown Cigarette Use Current Cigarette Smoker 1 Pack Daily ETOH Use Denies alcohol use Tobacco Use Start: Unknown Patient is a current smoker, smokes every day Smoking Status Reviewed: 06/23/19 Patient is a current smoker, smokes every [...] Torsemide 20mg Tablets 1 bid 60tabs Unknown Bronkaid 25-400mg Tablets Unknown Immunizations Description No Information Available Vital Signs Date Vital Result Comment 06/23/2019 2:03pm BP Systolic 132 mmHg BP Diastolic 78 mmHg Heart Rate 74 /min Respiratory Rate 20 /min Height 67 inches 5'7" Weight 400.00 lb Pain Level 6 Pain at this time. Pain Level With Medicine 5 on average with meds Pain Level Without Medicine 9 without meds BMI (Body Mass Index) 62.6 kg/m2 05/20/2019 2:08pm BP Systolic 136 mmHg BP Diastolic 86 mmHg Heart Rate 84 /min Respiratory Rate 20 /min Height 67 inches 5'7" Weight 400.00 lb unable to weigh on scale Pain Level 5 Pain at this time. Pain Level With Medicine 4 on average with meds Pain Level Without Medicine 9 without meds BMI (Body Mass Index) 62.6 kg/m2 Results Description No Information Available Procedures Date Code Description Status 05/20/2019 30586 Brief Emotional/Behav Assessment W/ Scoring Doc Per Completed Standard Inst 04/21/2019 16800 Therapeutic, Prophylactic Or Diagnostic Injection Subq/Im Completed 03/23/2019 49706 Therapeutic, Prophylactic Or Diagnostic Injection Subq/Im Completed 02/19/2019 74781 Therapeutic, Prophylactic Or Diagnostic Injection Subq/Im Completed Medical Devices Description No Information Available Encounters Type Date Location Provider Dx Diagnosis Office Visit 05/20/2019 Main Office as Of Francisco Renee DO G89.21 Chronic pain due 2:15p 06/05/13 MPH to trauma M25.552 Pain in left hip M25.551 Pain in right hip M54.5 Low back pain M43.16 Spondylolisthesis, lumbar region R53.83 Other fatigue Z79.891 [facility] (current) use of opiate analgesic Z13.31 Encounter for screening for depression Office Visit 04/21/2019 10:15a Main Office as Francisco Renee G89.21 Chronic pain due Of 06/05/13 DO, MPH to trauma M54.5 Low back pain M25.552 Pain in left hip M25.551 Pain in right hip M43.16 Spondylolisthesis, lumbar region Z79.891 [facility] (current) use of opiate analgesic R53.83 Other fatigue Office Visit 03/23/2019 10:30a Main Office as Francisco Renee G89.21 Chronic pain due Of 06/05/13 DO, MPH to trauma M43.16 Spondylolisthesis, lumbar region M25.552 Pain in left hip M25.551 Pain in right hip M54.5 Low back pain Z79.891 [facility] (current) use of opiate analgesic R53.83 Other fatigue Office Visit 02/19/2019 10:00a Main Office as ReneeFrancisco santillan, G89.21 Chronic pain due Of 06/05/13 DO, MPH to trauma M43.16 Spondylolisthesis, lumbar region M54.5 Low back pain M25.552 Pain in left hip M25.551 Pain in right hip Z79.891 [facility] (current) use of opiate analgesic R53.83 Other fatigue Office Visit 01/11/2019 2:45p Main Office as ReneeFrancisco santillan, G89.21 Chronic pain due Of 06/05/13 DO, MPH to trauma M43.16 Spondylolisthesis, lumbar region M54.5 Low back pain M25.551 Pain in right hip M25.552 Pain in 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 R53.83 Other fatigue Assessments Date Code Description Provider 06/23/2019 G89.21 Chronic pain due to trauma Renee, Francisco, DO, MPH 06/23/2019 M25.552 Pain in left hip Renee, Francisco, DO, MPH 06/23/2019 M25.551 Pain in right hip Renee, Francisco, DO, MPH 06/23/2019 M43.16 Spondylolisthesis, lumbar region Renee, Francisco, DO, MPH 06/23/2019 M54.5 Low back pain Renee, Francisco, DO, MPH 06/23/2019 Z79.891 [facility] (current) use of opiate analgesic Renee, Francisco , DO, MPH 06/23/2019 R53.83 Other fatigue Renee, Francisco, DO, MPH 05/20/2019 G89.21 Chronic pain due to trauma Renee, Francisco, DO, MPH 05/20/2019 M25.552 Pain in left hip Renee, Francisco, DO, MPH 05/20/2019 M25.551 Pain in right hip Renee, Francisco, DO, MPH 05/20/2019 M54.5 Low back pain Renee, Francisco, DO, MPH 05/20/2019 M43.16 Spondylolisthesis, lumbar region Renee, Francisco, DO, MPH 05/20/2019 R53.83 Other fatigue Renee, Francisco, DO, MPH 05/20/2019 Z79.891 [facility] (current) use of opiate analgesic Renee, Francisco , DO, MPH 05/20/2019 Z13.31 Encounter for screening for depression Renee, Francisco, DO, MPH 04/21/2019 G89.21 Chronic pain due to trauma Renee, Francisco, DO, MPH 04/21/2019 M54.5 Low back pain Renee, Francisco, DO, MPH 04/21/2019 M25.552 Pain in left hip Renee, Francisco, DO, MPH 04/21/2019 M25.551 Pain in right hip Renee, Francisco, DO, MPH 04/21/2019 M43.16 Spondylolisthesis, lumbar region Renee, Francisco, DO, MPH 04/21/2019 Z79.891 [facility] (current) use of opiate analgesic Renee, Francisco , DO, MPH 04/21/2019 R53.83 Other fatigue Renee, Francisco, DO, MPH 03/23/2019 G89.21 Chronic pain due to trauma Renee, Francisco, DO, MPH 03/23/2019 M43.16 Spondylolisthesis, lumbar region Renee, Francisco, DO, MPH 03/23/2019 M25.552 Pain in left hip Renee, Francisco, DO, MPH 03/23/2019 M25.551 Pain in right hip Renee, Francisco, DO, MPH 03/23/2019 M54.5 Low back pain Renee, Francisco, DO, MPH 03/23/2019 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 Renee, Francisco , DO, MPH 03/23/2019 R53.83 Other fatigue Renee, Francisco, DO, MPH 02/19/2019 G89.21 Chronic pain due to trauma Renee, Francisco, DO, MPH 02/19/2019 M43.16 Spondylolisthesis, lumbar region ReneeEnoch santillanph DO, MPH 02/19/2019 M54.5 Low back pain Renee, Francisco, DO, MPH 02/19/2019 M25.552 Pain in left hip Renee, Francisco, DO, MPH 02/19/2019 M25.551 Pain in right hip Renee, Francisco, DO, MPH 02/19/2019 Z79.891 [facility] (current) use of opiate analgesic Renee, Francisco , DO, MPH 02/19/2019 R53.83 Other fatigue ReneeEnoch santillanph, DO, MPH 01/11/2019 G89.21 Chronic pain due to trauma ReneeEnoch santillanph DO, MPH 01/11/2019 M43.16 Spondylolisthesis, lumbar region Renee, Francisco, DO, MPH 01/11/2019 M54.5 Low back pain ReneeEnoch santillanph DO, MPH 01/11/2019 M25.551 Pain in right hip Renee, Francisco DO, MPH 01/11/2019 M25.552 Pain in left hip Renee, Francisco, DO, MPH 01/11/2019 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 Symptoms and complaints discussed and reviewed today. No significant changes in physical findings. Continue current medical pain management.M25.552 Pain in left hipComments:Chronic. Symptoms and complaints discussed and reviewed today. No significant changes in physical findings. Continue current medical pain management.M25.551 Pain in right hipComments: Chronic. Symptoms and complaints discussed and reviewed today. 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 Importance of regular nutrition throughout the day discussed.Activity as toleratedContinue with PCP Functional Status Description No Information Available Mental Status Description No Information Available Referrals Description No Information Available
--- NOTE | 2019-07-19 12:56 | ED ---
Respiratory - HPI Summary HPI Summary: Patient is a 48 y/o F [place] [facility] [place] [facility] with a chief complaint of fever, dry cough, and SOB for the last two days. She reports she has been experiencing respiratory symptoms since April and recently had a CT 3 weeks ago with findings of possible spot on her lungs. On 07/12/2019, her two children developed respiratory symptoms, and for the last two days she has been suffering from SOB and cough. She also endorses fevers with 100.7F this morning warranting Tylenol use at 0630. Patients SOB and cough has been progressing today. She additionally states left ear pain with blood. Symptoms currently rated 4/10 in severity. She has been taking Doxycycline for last three days. She was seen at [facility] and referred here for admission for PNA. She denies dizziness, CP, abdominal pain, N/V/D, rash. Patient notes she has recently gained 60+ lbs. Has not had her diuretic in a while. No additional sick contacts or recent travel. COVID-19 testing ordered at [facility]. No history of VTE/ CHF. Past medical history includes HTN, asthma, gastric bypass, MRSA, shingles. Current smoker, no EtOH, no substance use. Medications reviewed. Allergies noted. - History of Current Complaint Stated Complaint: PNEUMONIA PER PT Time Seen by Provider: 07/19/19 12:48 Hx Obtained From: Patient Onset/Duration: Lasting Days - two, Still Present, Worse Since - today Initial Severity: Mild Current Severity: Moderate Character: Cough (Nonproductive), Dyspnea at Rest Sputum Amount: None Alleviating Factor(s): Nothing Associated Signs and Symptoms: Fever, SOB - Allergy/Home Medications Allergies/Adverse Reactions: Allergies Allergy/AdvReac Type Severity Reaction Status Date / Time erythromycin base Allergy Unknown Verified 07/19/19 08:53 Reaction Details levofloxacin [From Levaquin] Allergy Itching Verified 07/19/19 08:53 Penicillins Allergy Itching Verified 07/19/19 08:53 Tetracyclines Allergy Hives/Diff. Verified 07/19/19 08:53 Breathing/I tching Home Medications: Home Medications Oxymorphone HCl [Opana] 40 mg PO Q12H 08/26/17 [History Confirmed 07/19/19] Albuterol/Ipratropium NEB.DANIELLE* [Duoneb (Albuterol 2.5 MG/Ipratropium 0.5 MG)] 1 neb INH Q6H PRN #1 neb.danielle 07/19/19 [Rx Confirmed 07/19/19] Cefpodoxime 200 mg (NF) [Vantin 200 MG TAB (NF)] 200 mg PO Q12H 7 Days #14 tab 07/19/19 [Rx] Cyclobenzaprine TAB* [Flexeril 10 MG TAB*] 10 mg PO .Q8-10H 07/19/19 [History Confirmed 07/19/19] DOXYcycline CAP(*) [DOXYcycline 100MG CAP(*)] 100 mg PO BID 7 Days #14 cap 07/18 [Rx] Oxymorphone (NF) [Opana (NF)] 10 mg PO .Q4-6H 07/19/19 [History Confirmed ] PMH/Surg Hx/FS Hx/Imm Hx Endocrine/Hematology History: Denies: Hx Diabetes, Hx Thyroid Disease Cardiovascular History: Reports: Hx Hypertension, Other Cardiovascular Problems/ Disorders - 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 Denies: Hx Congestive Heart Failure, Hx Deep Vein Thrombosis, Hx Hypercholesterolemia, Hx Myocardial Infarction, Hx Pacemaker/ICD, Hx Peripheral Vascular Disease Respiratory History: Reports: Hx Asthma Denies: Hx Chronic Obstructive Pulmonary Disease (COPD), Hx Lung Cancer, Hx Pneumonia, Hx Pulmonary Embolism GI History: Denies: Hx Gall Bladder Disease, Hx Gastrointestinal Bleed, Hx Ulcer, Hx Urosepsis History: Denies: Hx Kidney Stones, Hx Renal Disease Musculoskeletal History: Reports: Hx Arthritis Denies: Hx Osteoporosis Sensory History: Denies: Hx Cataracts, Hx Contacts or Glasses, Hx Glaucoma Opthamlomology History: Denies: Hx Cataracts, Hx Contacts or Glasses, Hx Glaucoma Neurological History: Denies: Hx Dementia, Hx Headaches, Hx Migraine, Hx Seizures, Hx Transient Ischemic Attacks (TIA) Psychiatric History: Denies: Hx Anxiety, Hx Depression, Hx Schizophrenia, Hx Bipolar Disorder - Surgical History Surgical History: Yes Surgery Procedure, Year, and Place: 2005 & 2006 C-Sections. Gastric Bypass. traumatic . tubal ligation ("but I didn't have fallopian tubes and then I got twice" - Immunization History Date of Tetanus Vaccine: 2005 Date of Influenza Vaccine: 05/17 Infectious Disease History: Reports: Hx of Known/Suspected MRSA - under right axiillary, 3 years ago,vulva, Hx Shingles Denies: Hx Clostridium Difficile, Hx Hepatitis, Hx Human Immunodeficiency Virus (HIV), Hx Tuberculosis, Hx Known/Suspected VRE, Hx Known/Suspected VRSA, History Other Infectious Disease, Traveled Outside the [place] in Last 30 Days - Family History Known Family History: Positive: Cardiac Disease, Hypertension, Diabetes, Other - breast cancer, arthritis - Social History Alcohol Use: None Hx Substance Use: No Substance Use Type: Reports: None Substance Use Comment - Amount & Last Used: Opana x10 years Hx Tobacco Use: Yes Smoking Status (MU): Current Some Day Smoker Type: Cigarettes Amount Used/How Often: 1/2 ppd Length of Time of Smoking/Using Tobacco: 13+ years Have You Smoked in the Last Year: Yes Review of Systems Positive: Fever, Other - recent 60+ lbs weight gain Positive: Ear Ache - left, with blood Negative: Chest Pain Positive: Shortness Of Breath, Cough - dry Negative: Abdominal Pain, Vomiting, Nausea Negative: Rash Neurological/Mental Status: Other - Negative: dizziness All Other Systems Reviewed And Are Negative: Yes Physical Exam - Summary Physical Exam Summary: Constitutional: Well-developed, Morbidly obese, Alert. (-) Distressed Skin: Warm, Dry HENT: Normocephalic; Atraumatic Eyes: Conjunctiva normal Neck: Musculoskeletal ROM normal neck. (-) JVD, (-) Stridor, (-) Tracheal deviation Cardio: Rhythm regular, rate normal, Heart sounds normal; Intact distal pulses; Radial pulses are 2+ and symmetric. (-) Murmur Pulmonary/Chest wall: Effort normal. (-) Respiratory distress, (+) Faint wheezing b/l, (-) Rales Abd: Soft, (-) tenderness, (-) Distension, (-) Guarding, (-) Rebound Musculoskeletal: (+) BLE edema, No calf tenderness Lymph: (-) Cervical adenopathy Neuro: Alert, Oriented x3 Psych: Mood and affect Normal Triage Information Reviewed: Yes Vital Signs Reviewed: Yes Procedures - Sedation Patient Received Moderate/Deep Sedation with Procedure: No Diagnostics - Laboratory Result Diagrams: 07/19/19 12:48 07/19/19 13:01 Lab Statement: Any lab studies that have been ordered have been reviewed, and results considered in the medical decision making process. - Radiology CXR Radiology Interpretation Completed By: Radiologist Summary of Radiographic Findings: Impression: Diffuse interstitial opacification with patchy airspace disease of the right lung base suggestive of a mixture of infectious pneumonitis and consolidation given the clinical history. Dr. Campuzano has reviewed this report. - CT Chest/Thorax CTA CT Interpretation Completed By: Radiologist Summary of CT Findings: Impression: 1. No visualized pulmonary embolus. The subsegmental pulmonary arteries are subobtimally demonstrated, and cannot be completely cleared. 2. No consolidation, effusion or edema. 3. Mild bronchial wall thickening. This may represent underlying inflammation or infection, or be chronic. Dr. Campuzano has reviewed this report. - EKG 1339 Cardiac Rate: NL - 98 BPM EKG Rhythm: Sinus Rhythm Summary of EKG Findings: An EKG at 1339 reveals normal sinus rhythm at 98 BPM. No ischemic changes. Dr. Chan has reviewed and interpreted this EKG. Re-Evaluation - Re-Evaluation First Eval Re-Evaluation Time: 13:00 Comment: Patient ambulating, 97% O2 but tachypnea at 34 rpm. Disposition - Course Course Of Treatment: Patient is a 48 y/o F presenting with referent from [facility] for concerns of pneumonia via CXR warranting admission. 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 No travel. Recent 60+ lb weight gain. Hasnt had diuretic in a while. No hx of VTE/CHF. 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 Current smoker. Noted recent possible spot on lung via CT 3 weeks ago. Patient is morbidly obese on exam. Lungs with faint wheezing b/l. BLE edema, no calf tenderness. COVID-19 testing sent at [facility]. CXR taken at [facility] reveals diffuse interstitial opacification with patchy airspace disease of the right lung base suggestive of a mixture of infectious pneumonitis and consolidation given the clinical history. Patient received 2L fluids and Rocephin in the ED course. Blood work reveals WBCs 14.4, RBCs 5.45, hematocrit 48, absolute neutrophils 11.1, D-Dimer 262, creatinine 0.98, glucose 110, troponin 0.03, CRP 9.47, BNP 108. An EKG at 1339 reveals normal sinus rhythm at 98 BPM, no ischemic changes. Chest/Thorax CTA is negative for PE, consolidation, effusion, or edema, positive for bronchial wall thickening possibly representing underlying inflammation, infection, or chronic issue. The patient is a sign-out from Dr. Graeme Campuzano DO, to Dr. Angelo Foss MD, at change of shift at 1900 on 07/19/19, pending second troponin and disposition. Rx for Doxycycline, Vantin, and Lasix if discharged. - Diagnoses Provider Diagnoses: PNA (pneumonia) Discharge ED - Sign-Out/Discharge Documenting (check all that apply): Sign-Out Patient Signing out patient TO: Angelo Foss - Patient is a sign-out from Dr. Angelo Foss MD, at change of shift at 1900 on 07/19/19, pending second troponin and disposition. - Discharge Plan Condition: Stable Prescriptions: Cefpodoxime 200 mg (NF) [Vantin 200 MG TAB (NF)] 200 mg PO Q12H 7 Days #14 tab Referrals: [facility] [Outside] - Attestation Statements Document Initiated by Blayneibe: Yes Documenting Scribe: Naz Man Provider For Whom Dimitri is Documenting (Include Credential): Graeme Campuzano DO Scribe Attestation: INaz, blayneibed for Graeme Campuzano DO on 07/19/19 at 1855. Status of Scribe Document: Ready
[2019-07-19 14:14] LABS: ABS Basophils 0.1 10^3/ul (0-0.2); ABS Eosinophils 0.1 10^3/ul (0-0.6); ABS Lymphocytes 2.2 10^3/ul (1.0-4.8); ABS Neutrophils 11.1 10^3/ul (1.5-7.7); Eosinophil % 0.8 %; Hematocrit 48 % (35-47); Hemoglobin 15.8 g/dL (12.0-16.0); Lymphocyte % 15.4 %; Mean Corpuscular HGB Conc 33 g/dL (31-36); Mean Corpuscular Hemoglobin 29 pg (27-31); Mean Corpuscular Volume 88 fL (80-97); Platelet Count 200 10^3/uL (150-450); Red Blood Count 5.45 10^6 /uL (3.70-4.87); Red Cell Distribution Width 15 % (10-15); White Blood Count 14.4 10^3/uL (3.5-10.8)
[2019-07-19] MEDS ORDERED: NS 0.9% 1000 ML** 1,000 ML IV ONE ×2 (14:33→14:34)
[2019-07-19 14:34] LABS: Troponin I 0.03 ng/mL (<0.03)
[2019-07-19] MEDS ORDERED: Lidocaine 1% MPF ** 5 ML VIAL IM ONE (14:34)
[2019-07-19] MEDS ORDERED: cefTRIAXone VIAL(*) 1,000 MG VIAL IM ONE (14:34)
[2019-07-19 14:41] LABS: ALT 14 U/L (7-52); AST 21 U/L (13-39); Albumin 4.2 g/dL (3.2-5.2); Albumin/Globulin Ratio 1.4 (1-3); Alkaline Phosphatase 101 U/L (34-104); Anion Gap 10 mmol/L (2-11); BUN/Creatinine Ratio 21.4 (8-20); Blood Urea Nitrogen 21 mg/dL (6-24); C Reactive Protein 9.47 mg/L (<8.01); CO2 Carbon Dioxide 22 mmol/L (22-32); Calcium 9.6 mg/dL (8.6-10.3); Chloride 104 mmol/L (101-111); EGFR African American 73.9 (>60); EGFR Non-African American 61.1 (>60); Globulin 2.9 g/dL (2-4); Glucose 110 mg/dL (70-100); Sodium 136 mmol/L (135-145); Total Protein 7.1 g/dL (6.4-8.9)
[2019-07-19] MEDS ORDERED: cefTRIAXone(*) 1 GM in NS 0.9% 50 ML* 50 ML IVPB ONE (14:51)
[2019-07-19 15:01] LABS: HCG Pregnancy 2.47 mIU/mL
[2019-07-19] MEDS ORDERED: cefTRIAXone(*) 1 GM ADVAN/BAG ONE (15:01)
[2019-07-19] MEDS ORDERED: Iohexol 350* (CONTRAST) 500 ML MDV IV ONE (15:38)
--- NOTE | 2019-07-19 19:17 | ED ---
Progress - Progress Note Progress Note: The patient is a sign-out from Dr. Graeme Campuzano DO, to Dr. Angelo Fsos MD, at change of shift at 1900 on 07/19/19, pending second troponin and disposition. Re-Evaluation - Re-Evaluation First Eval Re-Evaluation Time: 20:24 Comment: Troponin is down to a .02. Pt is aggreeable to discharge. Course/Dx - Course Course Of Treatment: The patient is a sign-out from Dr. Graeme Campuzano DO, to Dr. Angelo Foss MD, at change of shift at 1900 on 07/19/19, pending second troponin and disposition. Her Troponin is a .02. She will be discharged home with a Dx of bronchitis. - Diagnoses Provider Diagnoses: Bronchitis Discharge ED - Sign-Out/Discharge Documenting (check all that apply): Patient Departure - discharge , Receiving Sign-Out Receiving patient FROM: Betito Campuzano - Discharge Plan Condition: Good Disposition: HOME Prescriptions: Cefpodoxime 200 mg (NF) [Vantin 200 MG TAB (NF)] 200 mg PO Q12H 7 Days #14 tab DOXYcycline CAP(*) [DOXYcycline 100MG CAP(*)] 100 mg PO BID 7 Days #14 cap Furosemide TAB* [Lasix TAB*] 40 mg PO DAILY #30 tab Patient Education Materials: Upper Respiratory Infection (ED) Referrals: [facility] [Outside] - 4 Days (if needed) - Billing Disposition and Condition Condition: GOOD Disposition: Home - Attestation Statements Document Initiated by Scribe: Yes Documenting Scribe: Tho Torres Provider For Whom Dimitri is Documenting (Include Credential): Angelo Foss MD Scribe Attestation: Tho Tyler, scribed for Angelo Foss MD on 07/20/19 at 0827. Scribe Documentation Reviewed: Yes Provider Attestation: The documentation as recorded by the Tho hardwick accurately reflects the service I personally performed and the decisions made by me, Angelo Foss MD Status of Scribe Document: Viewed
[2019-07-19 20:30] VITALS: BP 155/98
== END 2019-07-19 20:33 | disposition home or self-care (01) ==
LOC: ED 12:35
DX: J18.9 Pneumonia, unspecified organism (principal); R50.9 Fever, unspecified; R06.02 Shortness of breath; Z20.828 Contact with and (suspected) exposure to other viral communicable diseases; I10 Essential (primary) hypertension; J45.909 Unspecified asthma, uncomplicated; Z98.84 Bariatric surgery status; Z86.14 Personal history of Methicillin resistant Staphylococcus aureus infection; Z88.0 Allergy status to penicillin; Z72.0 Tobacco use; H92.02 Otalgia, left ear
CPT/HCPCS: 36415; 71275; 80053; 83880; 84484; 84702; 85025; 85379; 86140; 93005; 96365; 99284; J0696; Q9967